=== PATIENT | male | born 1950 | race African-American/Black ===

== ENCOUNTER → 2017-12-01 | Outpatient (CLI) | payer BC, MEDICARE ==
--- NOTE | 2017-12-01 15:01 | RADIOLOGY REPORT (SQ) ---
EXAM DESCRIPTION: U/S RETROPERITON (RENAL/AORTA) COMPLETED DATE/TIME: 12/01/2017 1:16 pm REASON FOR STUDY: RENAL FAILURE (N19) N19 UNSPECIFIED KIDNEY FAILURE COMPARISON: Abdominal CT scan dated April 2014 TECHNIQUE: Dynamic and static grayscale images acquired of the kidneys and bladder and recorded on P ACS. Additional selected color Doppler and spectral images recorded. LIMITATIONS: None. FINDINGS: RIGHT KIDNEY: 12.7 cm in length. Increased cortical echogenicity. Multiple cysts are identified with the largest measuring 3.1 x 3.0 x 2.8 cm in diameters. A complex area is identified in the upper pole measuring 2.7 x 2.8 x 3.1 cm in diameters which was present on the previous CT scan . Abdominal CT scan with IV contrast or MRI of may be of value for further evaluation. No hydroneph rosis. No calcifications. LEFT KIDNEY: 9.2 cm in length. Increased cortical echogenicity. No solid or suspicious masses. Multiple cysts are identified with the largest measuring 3.5 x 3.0 x 3.0 cm in diameters P No hydrone phrosis. No calcifications. BLADDER: No masses. OTHER: No other significant finding. IMPRESSION: CHRONIC MEDICAL RENAL DISEASE. Multiple bilateral renal cysts. A complex area is ident ified in the upper pole of the right kidney as noted above which was present on the previous CT scan. Abdominal CT scan with IV contrast or MRI may be of value for further evaluation. Other findings a s noted above TECHNICAL DOCUMENTATION: JOB ID: [id number] [employer]- All Rights Reserved Reading location - IP/workstation name: [email or web address]
== END ==
LOC: RAD 12:40
PROVIDERS: ATTEND Internal Medicine Nephrology
DX: N18.9 Chronic kidney disease, unspecified (principal); Q61.02 Congenital multiple renal cysts
CPT/HCPCS: 76770

== ENCOUNTER → 2018-02-20 | Outpatient (CLI) | payer MEDICARE ==
[2018-02-20 10:24] LABS: APPEARANCE,URINE SLIGHTLY-CLOUDY; BILIRUBIN,URINE NEGATIVE (NEGATIVE); COLOR,URINE YELLOW; GLUCOSE, URINE NEGATIVE (NEGATIVE); KETONES,URINE NEGATIVE (NEGATIVE); LEUKOCYTE ESTERASE,URINE LARGE (NEGATIVE); NITRITE,URINE NEGATIVE (NEGATIVE); PROTEIN,URINE 100 mg/dL (NEGATIVE); UROBILINOGEN,URINE NEGATIVE mg/dL (<2.0)
[2018-02-20 10:46] LABS: ANION GAP 11 (5-19); BLOOD UREA NITROGEN 27 mg/dL (7-20); CALCIUM 9.7 mg/dL (8.4-10.2); CARBON DIOXIDE 19 mmol/L (22-30); CHLORIDE 118 mmol/L (98-107); GLUCOSE 82 mg/dL (75-110); SODIUM 147.7 mmol/L (137-145)
[2018-02-24 09:39] LABS: CREATININE URINE 129.3 mg/dL (Not Estab.)
[2018-02-24 12:28] LABS: MICROALBUMIN URINE 549.5 ug/mL (Not Estab.)
== END ==
LOC: LAB 09:29
PROVIDERS: ATTEND Internal Medicine Nephrology
DX: N18.4 Chronic kidney disease, stage 4 (severe) (principal); M10.9 Gout, unspecified; R80.9 Proteinuria, unspecified
CPT/HCPCS: 36415; 80048; 81001; 82043; 82570; 83970; 84550

== ENCOUNTER → 2018-02-28 | Outpatient (CLI) | payer MEDICARE | LOC: OD 11:27 | PROVIDERS: ATTEND Internal Medicine Nephrology | DX: E87.5 Hyperkalemia (principal) | CPT/HCPCS: 36415; 84132 ==

== ENCOUNTER 2018-06-08 14:34 | Inpatient (IN) | payer MEDICARE ==
[2018-06-08] MEDS ORDERED: NORMAL SALINE 500 ML IV ONE (15:15)
--- NOTE | 2018-06-08 15:22 | ER Document Report ---
ED General - General Chief Complaint: Abnormal Lab Results Stated Complaint: ABNORMAL LABS Time Seen by Provider: 06/08/18 15:14 Mode of Arrival: Ambulatory Information source: Patient, Relative, [facility] Records Notes: 67-year-old male with end-stage renal disease, hypertension, hyperlipidemia, depression presents after his warehouse order picker office called and made him aware of high potassium and advised him to come to the emergency room. Patient states that he has felt generally weak over the last month. He reports a 15 pound weight loss. He also reports a decrease in appetite. He states that recently he has needed to use the allen and counter to walk throughout his home. He denies any headache, visual changes, nausea, vomiting, chest pain, shortness of breath, lower extremity edema. He does complain of some mild achy abdominal pain which is not new for him. TRAVEL OUTSIDE OF THE [place] IN LAST 30 DAYS: No - HPI Onset: Other Onset/Duration: Gradual Quality of pain: Achy Severity: Mild Associated symptoms: Weakness. denies: Chest pain, Fever, Headache, Nausea, Vomiting, Shortness of breath Exacerbated by: Denies Relieved by: Denies Similar symptoms previously: Yes Recently seen / treated by doctor: Yes - Related Data Allergies/Adverse Reactions: No Known Allergies Allergy (Verified 06/08/18 14:35) Past Medical History - General Information source: Patient, Relative, [facility] Records - Social History Smoking Status: Current Every Day Smoker Cigarette use (# per day): Yes - 20 Smoking Education Provided: Yes - Smoking cessation counseling was provided for 4 minutes at the bedside Frequency of alcohol use: None Drug Abuse: None Lives with: Spouse/Significant other Family History: Reviewed & Not Pertinent Patient has suicidal ideation: No Patient has homicidal ideation: No - Past Medical History Cardiac Medical History: Reports: Hx Hypercholesterolemia, Hx Hypertension Renal/ Medical History: Reports: Hx End Stage Renal Disease Psychiatric Medical History: Reports: Hx Depression Review of Systems - Review of Systems Notes: REVIEW OF SYSTEMS: CONSTITUTIONAL : Denies fever, chills, or sweats. Denies recent illness. Denies recent hospitalizations. EENT: Denies visual changes, eye pain. Denies sore throat, oral lesions, difficulty swallowing. CARDIOVASCULAR: Denies chest pain. Denies palpitations. Denies lower extremity edema. RESPIRATORY: Denies cough. Denies shortness of breath, wheezing. GASTROINTESTINAL: Denies abdominal pain or distention. Denies nausea, vomiting , or diarrhea. Denies blood in vomitus, stools, or per rectum. Denies black, tarry stools. Denies constipation. GENITOURINARY: Denies difficulty urinating, painful urination, frequency, blood in urine, testicular pain or penile discharge. MUSCULOSKELETAL: Denies back or neck pain or stiffness. Denies joint pain or swelling. SKIN: Denies rash, lesions or sores. HEMATOLOGIC : Denies easy bruising or bleeding. LYMPHATIC: Denies swollen glands. NEUROLOGICAL: Denies confusion or altered mental status. Denies loss of consciousness. Denies dizziness or lightheadedness. Denies headache. Denies paralysis. Denies problems difficulty with ambulation, slurred speech. Denies sensory loss, numbness, or tingling. Denies seizures. PSYCHIATRIC: Denies anxiety or stress. Denies depression, suicidal ideation, or Physical Exam - Vital signs Vitals: Temp Pulse Resp BP Pulse Ox 97.8 F 58 L 20 100/61 100 06/08/18 14:38 06/08/18 14:38 06/08/18 14:38 06/08/18 14:38 06/08/18 14:38 - Notes Notes: PHYSICAL EXAMINATION: GENERAL: Well-appearing, thin, frail and in no acute distress. HEAD: Atraumatic, normocephalic. EYES: Pupils equal round and reactive to light, extraocular movements intact, sclera anicteric, conjunctiva are normal. ENT: Nares patent, oropharynx clear without exudates. Dry mucous membranes. NECK: Normal range of motion, supple without lymphadenopathy LUNGS: Breath sounds clear to auscultation bilaterally and equal. No wheezes rales or rhonchi. HEART: Regular rate and rhythm without murmurs ABDOMEN: Soft, nontender, nondistended abdomen. No guarding, no rebound. No masses appreciated. Musculoskeletal: Normal range of motion, no pitting or edema. No cyanosis. NEUROLOGICAL: Cranial nerves grossly intact. Normal speech, normal gait. Normal sensory, motor exams PSYCH: Normal mood, normal affect. SKIN: Warm, Dry, normal turgor, no rashes or lesions noted. Course - Re-evaluation Re-evalutation: Laboratory 06/08/18 06/08/18 06/08/18 15:15 15:15 15:15 WBC 6.0 RBC 2.92 L Hgb 9.9 L Hct 30.4 L MCV 104 H MCH 34.0 H MCHC 32.7 RDW 14.8 H Plt Count 66 L Seg Neutrophils % 52.1 Lymphocytes % 30.8 Monocytes % 14.9 H Eosinophils % 1.6 Basophils % 0.6 Absolute Neutrophils 3.1 Absolute Lymphocytes 1.9 Absolute Monocytes 0.9 Absolute Eosinophils 0.1 Absolute Basophils 0.0 Retic Count (auto) Absolute Retic PT 13.5 INR 0.98 APTT 30.5 Sodium 137.4 Potassium 6.6 H* Chloride 112 H Carbon Dioxide 17 L Anion Gap 8 BUN 60 H Creatinine 7.84 H Est GFR ( Amer) 8 L Est GFR (Non-Af Amer) 7 L Glucose 95 POC Glucose Calcium 9.3 Magnesium 3.0 H Iron TIBC % Saturation Ferritin Total Bilirubin 0.5 Direct Bilirubin 0.4 Neonat Total Bilirubin Not Reportable Neonat Direct Bilirubin Not Reportable Neonat Indirect Bili Not Reportable AST 31 ALT 16 L Alkaline Phosphatase 58 Creatine Kinase 251 H CK-MB (CK-2) Troponin I Total Protein 7.0 Albumin 3.6 Vitamin B12 Folate Urine Color Urine Appearance Urine pH Ur Specific [place] Urine Protein Urine Glucose (UA) Urine Ketones Urine Blood Urine Nitrite Urine Bilirubin Urine Urobilinogen Ur Leukocyte Esterase Urine WBC (Auto) Urine RBC (Auto) Squamous Epi Cells Auto Urine Mucus (Auto) Urine Creatinine Protein/Creatinin Ratio Urine Total Protein Urine Ascorbic Acid 06/08/18 06/08/18 06/08/18 15:15 15:15 15:15 WBC RBC Hgb Hct MCV MCH MCHC RDW Plt Count Seg Neutrophils % Lymphocytes % Monocytes % Eosinophils % Basophils % Absolute Neutrophils Absolute Lymphocytes Absolute Monocytes Absolute Eosinophils Absolute Basophils Retic Count (auto) 0.64 L Absolute Retic 0.018 L PT INR APTT Sodium Cancelled Potassium Cancelled Chloride Cancelled Carbon Dioxide Cancelled Anion Gap Cancelled BUN Cancelled Creatinine Cancelled Est GFR ( Amer) Cancelled Est GFR (Non-Af Amer) Cancelled Glucose Cancelled POC Glucose Calcium Cancelled Magnesium Iron 103.0 TIBC 330 % Saturation 31 Ferritin 240.00 Total Bilirubin Direct Bilirubin Neonat Total Bilirubin Neonat Direct Bilirubin Neonat Indirect Bili AST ALT Alkaline Phosphatase Creatine Kinase CK-MB (CK-2) 1.75 Troponin I < 0.012 Total Protein Albumin Vitamin B12 632.0 Folate 13.60 Urine Color Urine Appearance Urine pH Ur Specific [place] Urine Protein Urine Glucose (UA) Urine Ketones Urine Blood Urine Nitrite Urine Bilirubin Urine Urobilinogen Ur Leukocyte Esterase Urine WBC (Auto) Urine RBC (Auto) Squamous Epi Cells Auto Urine Mucus (Auto) Urine Creatinine Protein/Creatinin Ratio Urine Total Protein Urine Ascorbic Acid 06/08/1818 18 17:18 17:18 17:20 WBC RBC Hgb Hct MCV MCH MCHC RDW Plt Count Seg Neutrophils % Lymphocytes % Monocytes % Eosinophils % Basophils % Absolute Neutrophils Absolute Lymphocytes Absolute Monocytes Absolute Eosinophils Absolute Basophils Retic Count (auto) Absolute Retic PT INR APTT Sodium Potassium Chloride Carbon Dioxide Anion Gap BUN Creatinine Est GFR ( Amer) Est GFR (Non-Af Amer) Glucose POC Glucose 92 Calcium Magnesium Iron TIBC % Saturation Ferritin Total Bilirubin Direct Bilirubin Neonat Total Bilirubin Neonat Direct Bilirubin Neonat Indirect Bili AST ALT Alkaline Phosphatase Creatine Kinase CK-MB (CK-2) Troponin I Total Protein Albumin Vitamin B12 Folate Urine Color STRAW Urine Appearance CLEAR Urine pH 6.0 Ur Specific [place] 1.009 Urine Protein 30 H Urine Glucose (UA) 50 H Urine Ketones NEGATIVE Urine Blood NEGATIVE Urine Nitrite NEGATIVE Urine Bilirubin NEGATIVE Urine Urobilinogen NEGATIVE Ur Leukocyte Esterase NEGATIVE Urine WBC (Auto) 1 Urine RBC (Auto) 0 Squamous Epi Cells Auto 1 Urine Mucus (Auto) RARE Urine Creatinine 42.6 Protein/Creatinin Ratio 0.6 H Urine Total Protein 26.2 H Urine Ascorbic Acid NEGATIVE 06/09/18 01:08 WBC RBC Hgb Hct MCV MCH MCHC RDW Plt Count Seg Neutrophils % Lymphocytes % Monocytes % Eosinophils % Basophils % Absolute Neutrophils Absolute Lymphocytes Absolute Monocytes Absolute Eosinophils Absolute Basophils Retic Count (auto) Absolute Retic PT INR APTT Sodium 138.9 Potassium 6.0 H* Chloride 116 H Carbon Dioxide 15 L Anion Gap 8 BUN 52 H Creatinine 6.52 H Est GFR ( Amer) 10 L Est GFR (Non-Af Amer) 9 L Glucose 113 H POC Glucose Calcium 9.1 Magnesium Iron TIBC % Saturation Ferritin Total Bilirubin Direct Bilirubin Neonat Total Bilirubin Neonat Direct Bilirubin Neonat Indirect Bili AST ALT Alkaline Phosphatase Creatine Kinase CK-MB (CK-2) Troponin I Total Protein Albumin Vitamin B12 Folate Urine Color Urine Appearance Urine pH Ur Specific [place] Urine Protein Urine Glucose (UA) Urine Ketones Urine Blood Urine Nitrite Urine Bilirubin Urine Urobilinogen Ur Leukocyte Esterase Urine WBC (Auto) Urine RBC (Auto) Squamous Epi Cells Auto Urine Mucus (Auto) Urine Creatinine Protein/Creatinin Ratio Urine Total Protein Urine Ascorbic Acid Chest X-Ray 06/08/18 15:15 IMPRESSION: NO ACUTE RADIOGRAPHIC FINDING IN THE CHEST. 67-year-old male with hypertension, hyperlipidemia, end-stage renal disease not currently undergoing dialysis presents after receiving a call from his warehouse order picker who stated that he had an elevated potassium level and should come immediately to the emergency department.. Potassium found to be 6.6. Patient has a creatinine of 7.84. This is a significant change from his previous labs in February which show a creatinine of 3. Upon arrival vitals are reviewed and patient is bradycardic at a heart rate of 55. Patient does not appear toxic, he does appear mildly dehydrated. He denies any associated dizziness, shortness of breath, chest pain. EKG was obtained and did show sinus bradycardia without peak T waves or prolonged QTC. Patient was administered calcium gluconate, insulin, dextrose, albuterol, IV fluids, Lasix during his ED course. CBC is without leukocytosis but does show anemia. Cardiac enzymes within normal limits. 06/08/18 15:59 I did speak to Dr. Pineda the patient's warehouse order picker and made her aware that the patient's creatinine is now 8 up from 3 three months ago. She is agreeable to consult on the patient. Patient has been accepted by the hospitalist Dr. Souza. Patient and were agreeable to admission at this time. 06/09/18 02:12 06/09/18 02:13 06/09/18 02:15 - Vital Signs Vital signs: Temp Pulse Resp BP Pulse Ox 97.9 F 55 L 16 116/58 L 100 06/08/18 23:20 06/08/18 23:20 06/08/18 23:20 06/08/18 23:20 06/08/18 23:20 - Laboratory Result Diagrams: 06/08/18 15:15 06/09/18 01:08 Laboratory results interpreted by me: 06/08/18 06/08/18 06/08/18 15:15 15:15 15:15 RBC 2.92 L Hgb 9.9 L Hct 30.4 L MCV 104 H MCH 34.0 H RDW 14.8 H Plt Count 66 L Monocytes % 14.9 H Retic Count (auto) 0.64 L Absolute Retic 0.018 L Potassium 6.6 H* Chloride 112 H Carbon Dioxide 17 L BUN 60 H Creatinine 7.84 H Est GFR ( Amer) 8 L Est GFR (Non-Af Amer) 7 L Magnesium 3.0 H ALT 16 L Creatine Kinase 251 H - Diagnostic Test Radiology reviewed: Image reviewed, Reports reviewed - EKG Interpretation by Me EKG shows normal: Sinus rhythm Rate: Bradycardia Rhythm: NSR When compared to previous EKG there are: Previous EKG unavailable Discharge - Discharge Clinical Impression: Hyperkalemia, End stage renal disease, Dehydration, Tremor, Bradycardia Condition: Good Disposition: ADMITTED INPATIENT Admitting Provider: Hospitalist Unit Admitted: Telemetry
[2018-06-08] MEDS ORDERED: CALCIUM GLUCONATE 1000 MG/10 ML INJ IV ONE (15:39)
[2018-06-08] MEDS ORDERED: ALBUTEROL SULFATE 0.083% NEB 2.5 MG/3 ML AMPUL NEB ONE (15:39)
[2018-06-08 15:43] LABS: INTERNATIONAL RATION (INR) 0.98
[2018-06-08 15:44] LABS: PARTIAL THROMBOPLASTIN TIME 30.5 SEC (23.5-35.8)
[2018-06-08 15:47] LABS: PROTHROMBIN TIME 13.5 SEC (11.4-15.4)
[2018-06-08 15:48] LABS: ABSOLUTE EOSINOPHILS # (AUTO) 0.1 10^3/uL (0.0-0.6); ABSOLUTE LYMPHOCYTES (AUTO) 1.9 10^3/uL (0.5-4.7); ABSOLUTE MONOCYTES (AUTO) 0.9 10^3/uL (0.1-1.4); ABSOLUTE NEUT (AUTO) 3.1 10^3/uL (1.7-8.2); BASOPHILS % (AUTO) 0.6 % (0-2); EOSINOPHILS % (AUTO) 1.6 % (0-6); HEMATOCRIT 30.4 % (37.9-51.0); HEMOGLOBIN 9.9 g/dL (13.5-17.0); LYMPHOCYTES % (AUTO) 30.8 % (13-45); MEAN CORPUSCULAR HGB CONC 32.7 g/dL (32.0-36.0); MEAN CORPUSCULAR VOLUME 104 fl (80-97); MONOCYTES % (AUTO) 14.9 % (3-13); RED BLOOD COUNT 2.92 10^6/uL (4.35-5.55); RED CELL DISTRIBUTION WIDTH 14.8 % (11.5-14.0); SEGMENTED NEUTROPHILS % (AUTO) 52.1 % (42-78); TOTAL CELLS COUNTED % (AUTO) 100 %
[2018-06-08 15:50] LABS: ALANINE AMINOTRANSFERASE 16 U/L (21-72); ALBUMIN 3.6 g/dL (3.5-5.0); ALKALINE PHOSPHATASE 58 U/L (38-126); ANION GAP 8 (5-19); ASPARTATE AMINO TRANSFERASE 31 U/L (17-59); BILIRUBIN,DIRECT 0.4 mg/dL (0.0-0.4); BILIRUBIN,TOTAL 0.5 mg/dL (0.2-1.3); BLOOD UREA NITROGEN 60 mg/dL (7-20); CALCIUM 9.3 mg/dL (8.4-10.2); CARBON DIOXIDE 17 mmol/L (22-30); CHLORIDE 112 mmol/L (98-107); CREATINE KINASE 251 U/L (55-170); GLUCOSE 95 mg/dL (75-110); PLATELET COUNT 66 10^3/uL (150-450); SODIUM 137.4 mmol/L (137-145)
[2018-06-08] MEDS ORDERED: INSULIN REG, HUMAN 100 UNIT/ML 3 ML VIAL (PYX) IV ONE (15:58)
[2018-06-08] MEDS ORDERED: DEXTROSE 50%-WATER 25 GM/50 ML DISP.SYRIN IV ONE (15:58)
[2018-06-08] MEDS ORDERED: FUROSEMIDE INJ/PF 20 MG/2 ML SDV IV ONE (15:59)
[2018-06-08] MEDS ORDERED: NORMAL SALINE 1000 ML 1,000 ML IV ONE (15:59)
[2018-06-08 16:02] LABS: CREATINE KINASE MB 1.75 ng/mL (<4.55); POTASSIUM 6.6 mmol/L (3.6-5.0)
--- NOTE | 2018-06-08 16:06 | RADIOLOGY REPORT (SQ) ---
EXAM DESCRIPTION: CHEST 2 VIEWS COMPLETED DATE/TIME: 06/08/2018 3:50 pm REASON FOR STUDY: weakness weight loss COMPARISON: None. EXAM PARAMETERS: NUMBER OF VIEWS: two views TECHNIQUE: Digital Frontal and Lateral radiographic views of the chest acquired. RADIATION DOSE: NA LIMITATIONS: none FINDINGS: LUNGS AND PLEURA: No opacities, masses or pneumothorax. No pleural effusion. MEDIASTINUM AND HILAR STRUCTURES: No masses or contour abnormalities. HEART AND VASCULAR STRUCTURES: Heart normal size. No evidence for failure. BONES: No acute findings. HARDWARE: None in the chest. OTHER: No other significant finding. IMPRESSION: NO ACUTE RADIOGRAPHIC FINDING IN THE CHEST. TECHNICAL DOCUMENTATION: JOB ID: [id number] [employer]- All Rights Reserved Reading location - IP/workstation name: [email or web address]
[2018-06-08 16:07] LABS: TROPONIN I < 0.012 ng/mL
--- NOTE | 2018-06-08 17:32 | PDOC H&P ---
History of Present Illness Admission Date/PCP: 06/08/18 16:39 MARIELLA MCCLAIN MD Patient complains of: Anorexia, weakness History of Present Illness: ARPITA MCARTHUR is a 67 year old male CKD diagnosed 5 years ago, hypertension, hyperlipidemia, seizure disorder, depression presents after his research assistant member office called and made him aware of high potassium and advised him to come to the emergency room. He states that he has felt generally weak over the last month and has lost about 15 pounds due to low appetite "food does not taste good" he has also cut down his fluid intake for the same reason. He mentions that he has lost his balance and on Tuesday he tripped and fell without losing consciousness or sustaining any trauma. He is also complaining of worsening intention tremor. He denies any headache, visual changes, nausea, vomiting, chest pain, shortness of breath, lower extremity edema. Hospitalist consulted for management for admission. As per ED doctor Dr. Mcclain his research assistant member is aware of his worsening renal function and hyperkalemia and has agreed to consult on the patient. Past Medical History Cardiac Medical History: Reports: Hyperlipidema, Hypertension Renal/ Medical History: Reports: End Stage Renal Disease Psychiatric Medical History: Reports: Depression Social History Lives with: Spouse/Significant other Smoking Status: Current Every Day Smoker Family History Family History: Reviewed & Not Pertinent Parental Family History Reviewed: Yes Children Family History Reviewed: Yes Sibling(s) Family History Reviewed.: Yes Medication/Allergy Home Medications: Amlodipine Besylate [Norvasc 5 mg Tablet] 5 mg PO DAILY 06/08/18 Benztropine Mesylate [Cogentin 1 mg Tablet] 1 tab PO DAILY 06/08/18 Cyanocobalamin (Vitamin B-12) [Vitamin B-12 1000 mcg Tablet] 1 tab PO DAILY Divalproex Sodium [Depakote ER 500 mg Tab.sr] 1,000 mg PO QHS 06/08/18 Folic Acid 1 mg PO DAILY 06/08/18 Lisinopril [Prinivil 5 mg Tablet] 5 mg PO DAILY 06/08/18 Lovastatin [Altoprev] 20 mg PO DAILY 06/08/18 Sulfamethoxazole/Trimethoprim [Bactrim Ds Tablet] 1 tab PO DAILY 06/08/18 Thiothixene 10 mg PO DAILY 06/08/18 Allergies/Adverse Reactions: No Known Allergies Allergy (Verified 06/08/18 14:35) Review of Systems Review of Systems: As per HPI Physical Exam Vital Signs: Temp Pulse Resp BP Pulse Ox 97.8 F 58 L 20 114/72 99 06/08/18 14:38 06/08/18 14:38 06/08/18 15:09 06/08/18 15:09 06/08/18 15:09 General appearance: PRESENT: no acute distress, cooperative, thin Head exam: PRESENT: atraumatic, normocephalic Eye exam: PRESENT: conjunctiva pink, EOMI, PERRLA. ABSENT: scleral icterus Neck exam: ABSENT: carotid bruit, JVD, lymphadenopathy, thyromegaly Respiratory exam: PRESENT: clear to auscultation pili. ABSENT: rales, rhonchi, wheezes Cardiovascular exam: PRESENT: RRR. ABSENT: diastolic murmur, rubs, systolic murmur Pulses: PRESENT: normal dorsalis pedis pul GI/Abdominal exam: PRESENT: normal bowel sounds, soft. ABSENT: distended, guarding, mass, organolmegaly, rebound, tenderness Neurological exam: PRESENT: alert, awake, oriented to person, oriented to place , oriented to time, oriented to situation, CN II-XII grossly intact, other - Moderate intention tremor.. ABSENT: motor sensory deficit Psychiatric exam: PRESENT: appropriate affect, normal mood. ABSENT: homicidal ideation, suicidal ideation Skin exam: PRESENT: dry, intact, warm. ABSENT: cyanosis, rash Results Impressions: Chest X-Ray 06/08/18 15:15 IMPRESSION: NO ACUTE RADIOGRAPHIC FINDING IN THE CHEST. Assessment & Plan - Diagnosis (1) Acute kidney injury superimposed on chronic kidney disease Is this a current diagnosis for this admission?: Yes Plan: She was having uremic symptoms due to worsening kidney function or could actually be going into end-stage renal disease. It is also possible his kidney function has been worsening because of poor oral intakes caused by his uremic symptoms. We will continue IV fluids guided by his volume status. BMP every 6 hours, treat underlying hyperkalemia. Patient is being followed by nephrology. (2) Hyperkalemia Is this a current diagnosis for this admission?: Yes Plan: Due to newly onset end-stage renal disease. Start on hyperkalemia protocol. Skiver Operator has been consulted possible hemodialysis. Admit to shelter monitor vitals. BMP every 4 hours. (3) Anemia in CKD (chronic kidney disease) Is this a current diagnosis for this admission?: Yes Plan: Most likely due to CKD. Order an iron panel and stool guaiac to rule out any other sources of anemia. BMP tomorrow. Supportive transfusions. (4) Hx of seizure disorder Is this a current diagnosis for this admission?: No Plan: Stated that he has a history of seizure disorders and he is on Depakote. Continue seizure precautions. During his home medication Depakote was not seen. (5) HTN (hypertension) Is this a current diagnosis for this admission?: No Plan: Currently normotensive. Monitor vitals. Will restart home medications once clinically appropriate. (6) Tremor Is this a current diagnosis for this admission?: No Plan: Worsening generalized intention tremor. Patient denies EtOH or any recreational drug abuse. This could likely be due to side effects of thiothixene for his schizophrenia. Restart benztropine. (7) Bradycardia Is this a current diagnosis for this admission?: Yes Plan: Sinus bradycardia. Asymptomatic. Admit to shelter monitor vitals. Cardiac enzymes negative (8) Dehydration Is this a current diagnosis for this admission?: Yes Plan: Likely due to decreased fluid intake. Patient stating he is not drinking water "it does not taste good" . Resuscitate guided by volume status. (9) Schizophrenia Is this a current diagnosis for this admission?: No Plan: Restart home meds. Outpatient psychiatry follow-up.
[2018-06-08] MEDS ORDERED: LORAZEPAM INJ 2 MG/1 ML VIAL IV PRN (17:40)
[2018-06-08 17:55] LABS: ABSOLUTE RETICS # 0.018 10^6/uL (0.028-0.122); RETICULOCYTE COUNT (AUTO) 0.64 % (0.66-2.85)
[2018-06-08 18:00] LABS: APPEARANCE,URINE CLEAR; BILIRUBIN,URINE NEGATIVE (NEGATIVE); COLOR,URINE STRAW; GLUCOSE, URINE 50 mg/dL (NEGATIVE); KETONES,URINE NEGATIVE (NEGATIVE); LEUKOCYTE ESTERASE,URINE NEGATIVE (NEGATIVE); NITRITE,URINE NEGATIVE (NEGATIVE); PROTEIN,URINE 30 mg/dL (NEGATIVE); URINE SPECIFIC GRAVITY 1.009; UROBILINOGEN,URINE NEGATIVE mg/dL (<2.0)
[2018-06-08] MEDS: SODIUM POLYSTYRENE SULFONATE 15 GM/60 ML PO SCH ×2 (18:17→23:46)
--- NOTE | 2018-06-08 18:26 | EKG REPORT ---
SEVERITY:- OTHERWISE NORMAL ECG - SINUS BRADYCARDIA : Confirmed by: Dimitri Green MD 08-Jun-2018 18:26:14
--- NOTE | 2018-06-08 20:12 | PDOC CONSULTATION ---
Consultation Consult Date: 06/08/18 Attending physician:: EVELYN KUMAR Consult reason:: I was asked to see the patient because of worsening kidney function and hyperkalemia. History of Present Illness Admission Date/PCP: 06/08/18 16:39 MARIELLA MCCLAIN MD History of Present Illness: ARPITA MCARTHUR is a 67 year old male known to me with history of chronic kidney disease stage IV secondary to hypertensive nephrosclerosis with nephrotic range proteinuria, hypertension, anemia of chronic kidney disease, bipolar disorder, who presented to the emergency room after we advised the patient to go to the ER because of hyperkalemia. Patient went to the lab today to have his usual standard blood work done before his appointment. The lab called my office because his potassium was elevated at 6.2. At that time. He called the patient and he indicated that he was not feeling so well and that he felt dizzy and has more tremors. So I advised the patient to go to the emergency room. The rest of his labs does not come out yet during that time. In the emergency room his labs were repeated and his potassium was confirmed to be elevated at 6.6. His BUN and creatinine were also elevated at 60 and 7.84 with estimated GFR of 8. The creatinine earlier in the morning was 8. Patient' s baseline kidney function include a creatinine around 3+ with estimated GFR around 20+. He has been stable for the last few months until now. In the emergency room he was given IV fluid bolus of normal saline at with a total of 1500 mL. He was also given medications for elevated potassium including an amp of calcium gluconate, 10 units of regular insulin with an amp of D50/50, a dose of Lasix 20 mg IV and a dose of Kayexalate 15 g was also given. He was also noted to be initially bradycardic but has improved now. But I talked to the patient the patient and who was at bedside confirmed that he has been feeling weak for the last 3-4 weeks. He said is been constipated. He admits that he has not been eating good because the food does not taste good at all. also confirms that he has not been drinking fluids may be less than 16 ounces a day. His urine output has decreased as well. He lost about 15 pounds. He otherwise denies any nausea, vomiting, chest pains, shortness of breath, no leg swelling. notices that his baseline essential tremors has been worsening as well. He was also noted to be a little bit unsteady. There was a question if the patient is still taking naproxen. Past Medical History Cardiac Medical History: Reports: Hyperlipidemia, Hypertension-primary Neurological Medical History: Reports: Other - Vertigo Renal/ Medical History: Reports: Chronic Kidney Disease Stage IV, Proteinuria , Secondary Hyperparathyroidism, Other - Kidney cysts Musculoskeltal Medical History: Reports: Arthritis, Gout Psychiatric Medical History: Reports: Schizoaffective Disorder, Other - Bipolar disorder Hematology Medical History: Reports Anemia of Chronic Kidney Disease Social History Information Source: Patient, Parent Lives with: Spouse/Significant other Smoking Status: Current Every Day Smoker Cigarettes Packs Per Day: 20 Number of Years Smokin Last Time Smoked: t Frequency of Alcohol Use: None Hx Recreational Drug Use: No Drugs: None Hx Prescription Drug Abuse: No - Advance Directive Resuscitation Status: Full Code Family History Family History: CVA - O[place]se father on both paternal and maternal side, DM - Father, brother and sister, Hypertension - Parents, sister and brother, Malignancy - Lung cancer in his mother, Other - Dementia on his mother Parental Family History Reviewed: Yes Children Family History Reviewed: Yes Sibling(s) Family History Reviewed.: Yes Medication/Allergy Home Medications: Amlodipine Besylate [Norvasc 5 mg Tablet] 5 mg PO DAILY 06/08/18 Benztropine Mesylate [Cogentin 1 mg Tablet] 1 tab PO DAILY 06/08/18 Cyanocobalamin (Vitamin B-12) [Vitamin B-12 1000 mcg Tablet] 1 tab PO DAILY Folic Acid 1 mg PO DAILY 06/08/18 Lisinopril [Prinivil 5 mg Tablet] 5 mg PO DAILY 06/08/18 Lovastatin [Altoprev] 20 mg PO DAILY 06/08/18 Sulfamethoxazole/Trimethoprim [Bactrim Ds Tablet] 1 tab PO DAILY 06/08/18 Thiothixene 10 mg PO DAILY 06/08/18 Allergies/Adverse Reactions: No Known Allergies Allergy (Verified 06/08/18 14:35) Review of Systems All systems: reviewed and no additional remarkable complaints except as stated Review of Systems: Constitutional: ABSENT: chills, fever(s), headache(s), weight gain; admits 15 pounds weight loss and weakness Eyes: ABSENT: visual disturbances Ears: ABSENT: hearing changes Cardiovascular: ABSENT: chest pain, dyspnea on exertion, edema, orthropnea, palpitations Respiratory: ABSENT: cough, dyspnea, hemoptysis Gastrointestinal: ABSENT: abdominal pain, diarrhea, hematemesis, hematochezia, nausea, vomiting; admits constipation Genitourinary: ABSENT: dysuria, hematuria Musculoskeletal: ABSENT: joint swelling Integumentary: ABSENT: rash, wounds Neurological: ABSENT: abnormal gait, abnormal speech, confusion, focal weakness , numbness, syncope; admits dizziness and unsteadiness, worsening tremors Psychiatric: ABSENT: anxiety, depression Endocrine: ABSENT: cold intolerance, heat intolerance, polydipsia, polyuria Hematologic/Lymphatic: ABSENT: easy bleeding, easy bruising, lymphadenopathy Physical Exam Vital Signs: Temp Pulse Resp BP Pulse Ox 97.8 F 81 21 H 129/70 H 99 06/08/18 14:38 06/08/18 19:16 06/08/18 18:00 06/08/18 17:00 06/08/18 18:00 Intake & Output 06/07/18 06/08/18 06/09/18 06:59 06:59 06:59 Intake Total 1000 Balance 1000 Exam: General appearance: No acute distress, cooperative, well-developed, well- nourished Head exam: PRESENT: atraumatic, normocephalic Eye exam: PRESENT: Conjunctiva slightly pale, EOMI, PERRLA. ABSENT: conjunctival injection, scleral icterus Mouth exam: PRESENT: moist, neck supple, tongue midline Neck exam: PRESENT: full ROM. ABSENT: carotid bruit, JVD, lymphadenopathy, thyromegaly Respiratory exam: PRESENT: clear to auscultation bilaterally. ABSENT: rales, rhonchi, stridor, wheezes Cardiovascular exam: PRESENT: RRR, +S1, +S2. ABSENT: systolic murmur Pulses: PRESENT: normal radial pulses, normal dorsalis pedis pulses GI/Abdominal exam: PRESENT: normal bowel sounds, soft. ABSENT: guarding, mass, tenderness Rectal exam: Deferred Extremities exam: PRESENT: full ROM. ABSENT: calf tenderness, pedal edema Musculoskeletal: PRESENT: full ROM. ABSENT: deformity Neurological exam: PRESENT: alert, Awake, Oriented to person, Oriented to place , Oriented to time, reflexes normal, CN II-XII grossly intact. ABSENT: motor sensory deficit Psychiatric exam: PRESENT: appropriate affect, normal mood. ABSENT: homicidal ideation, suicidal ideation Skin exam: PRESENT: intact, dry, warm. ABSENT: rash Results Laboratory Results: 06/08/18 17:18 Urine Color STRAW Urine Appearance CLEAR Urine pH 6.0 Ur Specific [place] 1.009 Urine Protein 30 H Urine Glucose (UA) 50 H Urine Ketones NEGATIVE Urine Blood NEGATIVE Urine Nitrite NEGATIVE Ur Leukocyte Esterase NEGATIVE Urine WBC (Auto) 1 Urine RBC (Auto) 0 06/08/18 06/08/18 06/08/18 10:37 10:37 10:37 Phosphorus 5.7 H Vitamin D 25-Hydroxy 46.9 PTH Intact 62.5 Laboratory 06/08/18 06/08/18 06/08/18 15:15 15:15 15:15 WBC 6.0 RBC 2.92 L Hgb 9.9 L Hct 30.4 L MCV 104 H MCH 34.0 H MCHC 32.7 RDW 14.8 H Plt Count 66 L Seg Neutrophils % 52.1 Lymphocytes % 30.8 Monocytes % 14.9 H Eosinophils % 1.6 Basophils % 0.6 Absolute Neutrophils 3.1 Absolute Lymphocytes 1.9 Absolute Monocytes 0.9 Absolute Eosinophils 0.1 Absolute Basophils 0.0 Retic Count (auto) Absolute Retic PT 13.5 INR 0.98 APTT 30.5 Sodium 137.4 Potassium 6.6 H* Chloride 112 H Carbon Dioxide 17 L Anion Gap 8 BUN 60 H Creatinine 7.84 H Est GFR ( Amer) 8 L Est GFR (Non-Af Amer) 7 L Glucose 95 POC Glucose Calcium 9.3 Magnesium 3.0 H Iron TIBC % Saturation Ferritin Total Bilirubin 0.5 Direct Bilirubin 0.4 Neonat Total Bilirubin Not Reportable Neonat Direct Bilirubin Not Reportable Neonat Indirect Bili Not Reportable AST 31 ALT 16 L Alkaline Phosphatase 58 Creatine Kinase 251 H CK-MB (CK-2) Troponin I Total Protein 7.0 Albumin 3.6 Vitamin B12 Folate Urine Color Urine Appearance Urine pH Ur Specific [place] Urine Protein Urine Glucose (UA) Urine Ketones Urine Blood Urine Nitrite Urine Bilirubin Urine Urobilinogen Ur Leukocyte Esterase Urine WBC (Auto) Urine RBC (Auto) Squamous Epi Cells Auto Urine Mucus (Auto) Urine Ascorbic Acid 06/08/18 06/08/18 06/08/18 15:15 15:15 15:15 WBC RBC Hgb Hct MCV MCH MCHC RDW Plt Count Seg Neutrophils % Lymphocytes % Monocytes % Eosinophils % Basophils % Absolute Neutrophils Absolute Lymphocytes Absolute Monocytes Absolute Eosinophils Absolute Basophils Retic Count (auto) 0.64 L Absolute Retic 0.018 L PT INR APTT Sodium Cancelled Potassium Cancelled Chloride Cancelled Carbon Dioxide Cancelled Anion Gap Cancelled BUN Cancelled Creatinine Cancelled Est GFR ( Amer) Cancelled Est GFR (Non-Af Amer) Cancelled Glucose Cancelled POC Glucose Calcium Cancelled Magnesium Iron 103.0 TIBC 330 % Saturation 31 Ferritin 240.00 Total Bilirubin Direct Bilirubin Neonat Total Bilirubin Neonat Direct Bilirubin Neonat Indirect Bili AST ALT Alkaline Phosphatase Creatine Kinase CK-MB (CK-2) 1.75 Troponin I < 0.012 Total Protein Albumin Vitamin B12 632.0 Folate 13.60 Urine Color Urine Appearance Urine pH Ur Specific [place] Urine Protein Urine Glucose (UA) Urine Ketones Urine Blood Urine Nitrite Urine Bilirubin Urine Urobilinogen Ur Leukocyte Esterase Urine WBC (Auto) Urine RBC (Auto) Squamous Epi Cells Auto Urine Mucus (Auto) Urine Ascorbic Acid 06/08/18 06/08/18 17:18 17:20 WBC RBC Hgb Hct MCV MCH MCHC RDW Plt Count Seg Neutrophils % Lymphocytes % Monocytes % Eosinophils % Basophils % Absolute Neutrophils Absolute Lymphocytes Absolute Monocytes Absolute Eosinophils Absolute Basophils Retic Count (auto) Absolute Retic PT INR APTT Sodium Potassium Chloride Carbon Dioxide Anion Gap BUN Creatinine Est GFR ( Amer) Est GFR (Non-Af Amer) Glucose POC Glucose 92 Calcium Magnesium Iron TIBC % Saturation Ferritin Total Bilirubin Direct Bilirubin Neonat Total Bilirubin Neonat Direct Bilirubin Neonat Indirect Bili AST ALT Alkaline Phosphatase Creatine Kinase CK-MB (CK-2) Troponin I Total Protein Albumin Vitamin B12 Folate Urine Color STRAW Urine Appearance CLEAR Urine pH 6.0 Ur Specific [place] 1.009 Urine Protein 30 H Urine Glucose (UA) 50 H Urine Ketones NEGATIVE Urine Blood NEGATIVE Urine Nitrite NEGATIVE Urine Bilirubin NEGATIVE Urine Urobilinogen NEGATIVE Ur Leukocyte Esterase NEGATIVE Urine WBC (Auto) 1 Urine RBC (Auto) 0 Squamous Epi Cells Auto 1 Urine Mucus (Auto) RARE Urine Ascorbic Acid NEGATIVE Impressions: Chest X-Ray 06/08/18 15:15 IMPRESSION: NO ACUTE RADIOGRAPHIC FINDING IN THE CHEST. Assessment & Plan - Diagnosis (1) Acute kidney injury superimposed on chronic kidney disease Is this a current diagnosis for this admission?: Yes Plan: The patient's symptoms are consistent with uremic symptoms due to worsening kidney function. It is possible that the patient's kidney function is worsening and is actually in end-stage renal disease now causing all the symptoms. However it is also possible that due to the patient's poor oral intake of solids and liquids for the past 3-4 weeks that the patient just had severe prerenal azotemia due to volume depletion causing worsening kidney function. The patient's kidney function has so far been stable for the last few months with baseline CKD stage IV. I am going to give the patient a trial of IV fluid hydration and see if the patient's kidney function will improve. If it does not improve for the next 12 hours or so then the patient will need to be initiated on hemodialysis. I explained the process, risks and benefits of hemodialysis with the patient. The patient agreed to proceed if necessary. We will monitor the patient's kidney function in the morning we will decide if the patient would need renal replacement therapy or not. Agree with holding the patient's lisinopril and any NSAIDs. Will check urine for protein creatinine ratio. Check kidney ultrasound as well. (2) Hyperkalemia Is this a current diagnosis for this admission?: Yes Plan: Patient was given medications to decrease potassium level earlier in the emergency room. The IV fluids can also lower down the potassium level. We will repeat potassium and proceed accordingly. (3) Anemia in CKD (chronic kidney disease) Is this a current diagnosis for this admission?: Yes Plan: Check iron panel. We will give iron and/or Procrit as needed. (4) Metabolic acidosis Is this a current diagnosis for this admission?: Yes Plan: We will monitor for now. (5) Hyperphosphatemia Is this a current diagnosis for this admission?: Yes Plan: Follow low phosphorus diet. (6) Hypermagnesemia Is this a current diagnosis for this admission?: Yes (7) HTN (hypertension) Is this a current diagnosis for this admission?: Yes - Notes Notes: Impression and plan discussed with the patient and his . They understood. Plan also discussed with the patient's nurse blaine. Thank you very much for this consultation. I will follow the patient with you. - Time Time Spent: Greater than 70 Minutes
[2018-06-08] MEDS: NORMAL SALINE 1000 ML 1,000 ML IV PRN (20:20)
[2018-06-08] MEDS: HEPARIN SOD (PORCINE) 5,000 UNIT/ML 1 ML SYRINGE SUBCUT SCH (21:47)
[2018-06-08] MEDS: ATORVASTATIN CALCIUM 20 MG TABLET PO SCH (21:52)
[2018-06-08] MEDS ORDERED: FUROSEMIDE INJ/PF 20 MG/2 ML SDV IV SCH (22:00)
[2018-06-08 23:05] LABS: UR PRO/CREAT RATIO RESULT 0.6 mg/mg (0.0-0.2); URINE CREATININE 42.6 mg/dL (22-328); URINE PROTEIN 26.2 mg/dL (<12)
[2018-06-08] MEDS ORDERED: DIVALPROEX SODIUM 500 MG TAB.SR.24H PO ONE (23:50)
[2018-06-09 01:47] LABS: ANION GAP 8 (5-19); BLOOD UREA NITROGEN 52 mg/dL (7-20); CALCIUM 9.1 mg/dL (8.4-10.2); CARBON DIOXIDE 15 mmol/L (22-30); CHLORIDE 116 mmol/L (98-107); GLUCOSE 113 mg/dL (75-110); SODIUM 138.9 mmol/L (137-145)
[2018-06-09] MEDS: NORMAL SALINE 1000 ML 1,000 ML IV PRN (02:18)
[2018-06-09] MEDS: HEPARIN SOD (PORCINE) 5,000 UNIT/ML 1 ML SYRINGE SUBCUT SCH ×3 (05:00→21:15)
[2018-06-09] MEDS: LANSOPRAZOLE 15 MG TAB.RAP.DR PO SCH (05:57)
[2018-06-09] MEDS: SODIUM POLYSTYRENE SULFONATE 15 GM/60 ML PO SCH ×2 (05:57→14:16)
[2018-06-09] MEDS ORDERED: DEXTROSE 50%-WATER 25 GM/50 ML DISP.SYRIN IV ONE ×2 (06:49→06:54)
[2018-06-09] MEDS ORDERED: SODIUM POLYSTYRENE SULFONATE 15 GM/60 ML PO ONE (06:49)
[2018-06-09] MEDS ORDERED: INSULIN REG, HUMAN 100 UNIT/ML 3 ML VIAL (PYX) IV ONE ×2 (06:52→09:00)
[2018-06-09 07:44] LABS: ANION GAP 10 (5-19); BLOOD UREA NITROGEN 46 mg/dL (7-20); CALCIUM 9.1 mg/dL (8.4-10.2); CARBON DIOXIDE 15 mmol/L (22-30); CHLORIDE 118 mmol/L (98-107); GLUCOSE 89 mg/dL (75-110); POTASSIUM 5.5 mmol/L (3.6-5.0); SODIUM 142.6 mmol/L (137-145)
[2018-06-09 07:46] LABS: HEMATOCRIT 27.9 % (37.9-51.0); HEMOGLOBIN 9.3 g/dL (13.5-17.0); MEAN CORPUSCULAR HEMOGLOBIN 34.8 pg (27.0-33.4); MEAN CORPUSCULAR HGB CONC 33.4 g/dL (32.0-36.0); MEAN CORPUSCULAR VOLUME 104 fl (80-97); RED BLOOD COUNT 2.68 10^6/uL (4.35-5.55); RED CELL DISTRIBUTION WIDTH 14.7 % (11.5-14.0); WHITE BLOOD COUNT 6.1 10^3/uL (4.0-10.5)
[2018-06-09 08:14] LABS: PLATELET COUNT 57 10^3/uL (150-450)
[2018-06-09] MEDS ORDERED: CALCIUM GLUCONATE 1000 MG/10 ML INJ IV ONE (09:00)
--- NOTE | 2018-06-09 09:59 | PDOC PROGRESS REPORT ---
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 He states that he has felt generally weak over the last month and has lost about 15 pounds due to low appetite "food does not taste good" he has also cut down his fluid intake for the same reason. He mentions that he has lost his balance and on Tuesday he tripped and fell without losing consciousness or sustaining any trauma. He is also complaining of worsening intention tremor. He denies any headache, visual changes, nausea, vomiting, chest pain, shortness of breath, lower extremity edema. 06/09/2018. No acute events overnight. Patient is resting comfortably in his bed while his is sitting next to him in the chair. She is very pleasant and cooperative with physical examination. And has been able to tolerate p.o. intake and also he has been receiving IV fluids. Patient said that he had been urinating since last night. He may need hemodialysis on this admission. His tremors has decreased significantly since admission. He denies any fever, chills, nausea, vomiting, diarrhea, constipation or any urinary symptoms. Reason For Visit: HYPERKALEMIA Physical Exam Vital Signs: Temp Pulse Resp BP Pulse Ox 98.4 F 59 L 17 131/65 H 96 06/09/18 07:12 06/09/18 07:12 06/09/18 07:12 06/09/18 07:12 06/09/18 09:09 Intake & Output 06/08/18 06/09/18 06/10/18 06:59 06:59 06:59 Intake Total 2095 Output Total 400 Balance 1695 Weight 68.8 kg General appearance: PRESENT: no acute distress, well-developed, well-nourished Head exam: PRESENT: atraumatic, normocephalic Eye exam: PRESENT: conjunctiva pink, EOMI, PERRLA. ABSENT: scleral icterus Ear exam: PRESENT: normal external ear exam Mouth exam: PRESENT: moist, tongue midline Neck exam: ABSENT: carotid bruit, JVD, lymphadenopathy, thyromegaly Respiratory exam: PRESENT: clear to auscultation pili. ABSENT: rales, rhonchi, wheezes Cardiovascular exam: PRESENT: RRR. ABSENT: diastolic murmur, rubs, systolic murmur Pulses: PRESENT: normal dorsalis pedis pul Vascular exam: PRESENT: normal capillary refill GI/Abdominal exam: PRESENT: normal bowel sounds, soft. ABSENT: distended, guarding, mass, organolmegaly, rebound, tenderness Rectal exam: PRESENT: deferred Extremities exam: PRESENT: full ROM. ABSENT: calf tenderness, clubbing, pedal edema Neurological exam: PRESENT: alert, awake, oriented to person, oriented to place , oriented to time, oriented to situation, CN II-XII grossly intact, other - Resting and intention tremor possibly caused by his antipsychotics.. ABSENT: motor sensory deficit Psychiatric exam: PRESENT: appropriate affect, normal mood. ABSENT: homicidal ideation, suicidal ideation Skin exam: PRESENT: dry, intact, warm. ABSENT: cyanosis, rash Results Laboratory Results: 06/09/18 07:05 06/09/18 07:05 06/08/18 06/09/18 06/09/18 17:18 01:08 07:05 WBC 6.1 RBC 2.68 L Hgb 9.3 L Hct 27.9 L MCV 104 H MCH 34.8 H MCHC 33.4 RDW 14.7 H Plt Count 57 L Sodium 138.9 Potassium 6.0 H* Chloride 116 H Carbon Dioxide 15 L Anion Gap 8 BUN 52 H Creatinine 6.52 H Est GFR ( Amer) 10 L Est GFR (Non-Af Amer) 9 L Glucose 113 H Calcium 9.1 Urine Color STRAW Urine Appearance CLEAR Urine pH 6.0 Ur Specific [place] 1.009 Urine Protein 30 H Urine Glucose (UA) 50 H Urine Ketones NEGATIVE Urine Blood NEGATIVE Urine Nitrite NEGATIVE Ur Leukocyte Esterase NEGATIVE Urine WBC (Auto) 1 Urine RBC (Auto) 0 06/09/18 07:05 WBC RBC Hgb Hct MCV MCH MCHC RDW Plt Count Sodium 142.6 Potassium 5.5 H Chloride 118 H Carbon Dioxide 15 L Anion Gap 10 BUN 46 H Creatinine 5.49 H Est GFR ( Amer) 13 L Est GFR (Non-Af Amer) 10 L Glucose 89 Calcium 9.1 Urine Color Urine Appearance Urine pH Ur Specific [place] Urine Protein Urine Glucose (UA) Urine Ketones Urine Blood Urine Nitrite Ur Leukocyte Esterase Urine WBC (Auto) Urine RBC (Auto) Impressions: Chest X-Ray 06/08/18 15:15 IMPRESSION: NO ACUTE RADIOGRAPHIC FINDING IN THE CHEST. Assessment & Plan - Diagnosis (1) Acute kidney injury superimposed on chronic kidney disease Is this a current diagnosis for this admission?: Yes Plan: Improving. BUN and creatinine are trending down as well as potassium. Continue IV fluids guided by his volume status and encourage p.o. intake. His was having uremic symptoms due to worsening kidney function or could actually be going into end-stage renal disease. It is also possible his kidney function has been worsening because of poor oral intakes caused by his uremic symptoms. Nephrology on board. (2) Hyperkalemia Is this a current diagnosis for this admission?: Yes Plan: Improving. Due to worsening renal function. . Continue hyperkalemia protocol. Nephrology following. Continue telemetry. BMP every 6 hours. (3) Anemia in CKD (chronic kidney disease) Qualifiers: Chronic kidney disease stage: stage 5, not on chronic dialysis Qualified Code(s): N18.5 - Chronic kidney disease, stage 5; D63.1 - Anemia in chronic kidney disease; D63.1 - Anemia in chronic kidney disease Is this a current diagnosis for this admission?: Yes Plan: Likely caused by underlying CKD. H&H stable. Denies any external source of bleeding. Iron panel within normal limits. And may benefit from Procrit. Nephrology following. (4) Hx of seizure disorder Is this a current diagnosis for this admission?: No Plan: Start Depakote. Monitor electrolytes. Seizure precautions. (5) HTN (hypertension) Is this a current diagnosis for this admission?: No Plan: Restart amlodipine. Monitor vitals and adjust medications as needed. (6) Tremor Is this a current diagnosis for this admission?: No Plan: Improving since admission. Patient does not have any history of alcohol abuse or Parkinson. This could likely be due to side effects of thiothixene that he is doing for his schizophrenia. Restart benztropine. (7) Bradycardia Is this a current diagnosis for this admission?: Yes Plan: Sinus bradycardia. Asymptomatic. 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 Cardiac enzymes negative (8) Dehydration Is this a current diagnosis for this admission?: Yes Plan: Likely due to decreased fluid intake caused by uremic symptoms. Patient stating he is not drinking water "it does not taste good" . Resuscitate guided by volume status. (9) Schizophrenia Is this a current diagnosis for this admission?: No Plan: Restart home meds. Outpatient psychiatry follow-up.
[2018-06-09] MEDS: FOLIC ACID 1 MG TABLET PO SCH (10:00)
[2018-06-09] MEDS ORDERED: CYANOCOBALAMIN (VITAMIN B-12) 1,000 MCG TABLET PO SCH (10:00)
[2018-06-09] MEDS: BENZTROPINE MESYLATE 1 MG TABLET PO SCH (10:00)
[2018-06-09] MEDS ORDERED: THIOTHIXENE 10 MG PO SCH (10:00)
[2018-06-09] MEDS: AMLODIPINE BESYLATE 5 MG TABLET PO SCH (10:04)
[2018-06-09 14:14] LABS: ANION GAP 7 (5-19); BLOOD UREA NITROGEN 44 mg/dL (7-20); CALCIUM 9.4 mg/dL (8.4-10.2); CARBON DIOXIDE 14 mmol/L (22-30); CHLORIDE 123 mmol/L (98-107); POTASSIUM 5.1 mmol/L (3.6-5.0)
[2018-06-09 14:29] LABS: GLUCOSE 37 mg/dL (75-110)
--- NOTE | 2018-06-09 15:10 | RADIOLOGY REPORT (SQ) ---
EXAM DESCRIPTION: U/S RETROPERITON (RENAL/AORTA) COMPLETED DATE/TIME: 06/09/2018 2:41 pm REASON FOR STUDY: ASHLEY on CKD COMPARISON: 12/01/2017. TECHNIQUE: Dynamic and static grayscale images acquired of the kidneys and bladder and recorded on P ACS. Additional selected color Doppler and spectral images recorded. LIMITATIONS: None. FINDINGS: RIGHT KIDNEY: Normal size. Increased echogenicity. Simple cysts measuring 2.2 cm and 3.1 cm and complex cyst in the upper pole measuring 2.9 cm. No solid or suspicious masses. No hydroneph rosis. No calcifications. LEFT KIDNEY: Normal size. Increased echogenicity. Simple cysts measuring 2.9 and 3.8 cm. No solid or suspicious masses. No hydronephrosis. No calcifications. BLADDER: No masses. OTHER FINDINGS: No other significant finding. IMPRESSION: INCREASED ECHOGENICITY OF THE RENAL PARENCHYMA CONSISTENT WITH CHRONIC MEDICAL RENAL DIS EASE. NO HYDRONEPHROSIS. BILATERAL RENAL CYSTS UNCHANGED. TECHNICAL DOCUMENTATION: JOB ID: [id number] [employer]- All Rights Reserved Reading location - IP/workstation name: [email or web address]
[2018-06-09] MEDS ORDERED: 1/2 NORMAL SALINE 1,000 ML IV PRN (17:20)
--- NOTE | 2018-06-09 17:28 | PDOC PROGRESS REPORT ---
Subjective Progress Note for:: 06/09/18 Subjective:: Patient said that he is feeling better. When I entered the room he was eating his dinner and he seems to be eating according to him more than what he was doing at home for 3-4 weeks. He tells me that he is going to the bathroom better to include urination and bowel movements. He denies any complaints including shortness of breath. He feels like his tremors is better. Reason For Visit: HYPERKALEMIA Physical Exam Vital Signs: Temp Pulse Resp BP Pulse Ox 97.6 F 78 20 124/56 L 99 06/09/18 11:46 06/09/18 14:00 06/09/18 11:46 06/09/18 11:46 06/09/18 11:46 Intake & Output 06/08/18 06/09/18 06/10/18 06:59 06:59 06:59 Intake Total 2095 477 Output Total 400 Balance 1695 477 Weight 68.8 kg Exam: General appearance: PRESENT: no acute distress, cooperative, well-developed, well-nourished Head exam: PRESENT: atraumatic, normocephalic Eye exam: PRESENT: conjunctiva slightly pale, PERRLA. ABSENT: scleral icterus Neck exam: ABSENT: JVD Respiratory exam: PRESENT: Normal breath sounds. ABSENT: crackles, rales, rhonchi, unlabored, wheezes Cardiovascular exam: PRESENT: Regular rate rhythm -+S1, +S2. ABSENT: diastolic murmur, systolic murmur GI/Abdominal exam: PRESENT: normal bowel sounds, soft. ABSENT: guarding, mass, tenderness Extremities exam: ABSENT: No edema Neurological exam: PRESENT: alert, awake, oriented to person, place and time. Positive intention tremors Skin exam: PRESENT: dry, warm, Results Laboratory Results: 06/09/18 07:05 06/09/18 13:23 06/08/18 06/09/18 06/09/18 17:18 01:08 07:05 WBC 6.1 RBC 2.68 L Hgb 9.3 L Hct 27.9 L MCV 104 H MCH 34.8 H MCHC 33.4 RDW 14.7 H Plt Count 57 L Sodium 138.9 Potassium 6.0 H* Chloride 116 H Carbon Dioxide 15 L Anion Gap 8 BUN 52 H Creatinine 6.52 H Est GFR ( Amer) 10 L Est GFR (Non-Af Amer) 9 L Glucose 113 H Calcium 9.1 Urine Color STRAW Urine Appearance CLEAR Urine pH 6.0 Ur Specific [place] 1.009 Urine Protein 30 H Urine Glucose (UA) 50 H Urine Ketones NEGATIVE Urine Blood NEGATIVE Urine Nitrite NEGATIVE Ur Leukocyte Esterase NEGATIVE Urine WBC (Auto) 1 Urine RBC (Auto) 0 06/09/18 06/09/18 07:05 13:23 WBC RBC Hgb Hct MCV MCH MCHC RDW Plt Count Sodium 142.6 144.0 Potassium 5.5 H 5.1 H Chloride 118 H 123 H Carbon Dioxide 15 L 14 L Anion Gap 10 7 BUN 46 H 44 H Creatinine 5.49 H 5.18 H Est GFR ( Amer) 13 L 13 L Est GFR (Non-Af Amer) 10 L 11 L Glucose 89 37 L* Calcium 9.1 9.4 Urine Color Urine Appearance Urine pH Ur Specific [place] Urine Protein Urine Glucose (UA) Urine Ketones Urine Blood Urine Nitrite Ur Leukocyte Esterase Urine WBC (Auto) Urine RBC (Auto) Impressions: Chest X-Ray 06/08/18 15:15 IMPRESSION: NO ACUTE RADIOGRAPHIC FINDING IN THE CHEST. Renal Ultrasound 06/09/18 00:00 IMPRESSION: INCREASED ECHOGENICITY OF THE RENAL PARENCHYMA CONSISTENT WITH CHRONIC MEDICAL RENAL DISEASE. NO HYDRONEPHROSIS. BILATERAL RENAL CYSTS UNCHANGED. Assessment & Plan - Diagnosis (1) Acute kidney injury superimposed on chronic kidney disease Is this a current diagnosis for this admission?: Yes Plan: Likely due to prerenal azotemia secondary to dehydration. He has urine protein to creatinine ratio of 0.6. Patient's kidney function is significantly improved with IV fluid hydration. We will continue IV hydration but will change to fluids 2.45 normal saline at 125 mL an hour. Continue to monitor kidney function and electrolytes at this time. Will hold initiation of renal replacement therapy and reevaluate the patient. (2) Hyperkalemia Is this a current diagnosis for this admission?: Yes Plan: Resolving. Discontinue Kayexalate. (3) Anemia in CKD (chronic kidney disease) Qualifiers: Chronic kidney disease stage: stage 5, not on chronic dialysis Qualified Code(s): N18.5 - Chronic kidney disease, stage 5; D63.1 - Anemia in chronic kidney disease; D63.1 - Anemia in chronic kidney disease Is this a current diagnosis for this admission?: Yes Plan: Iron panel are acceptable. We will give the patient Procrit 20,000 units subcutaneously x1 dose today. (4) Metabolic acidosis Is this a current diagnosis for this admission?: Yes Plan: This is due to AK I/CKD and IV fluid hydration. We will start the patient on oral sodium bicarbonate 650 mg 2 tablets twice a day. (5) Hyperphosphatemia Is this a current diagnosis for this admission?: Yes (6) Hypermagnesemia Is this a current diagnosis for this admission?: Yes (7) HTN (hypertension) Is this a current diagnosis for this admission?: Yes Plan: Well-controlled. - Notes Notes: Patient would need a couple more days for adequate hydration and hopefully improvement of kidney function to baseline. - Time Time with patient: 15-25 minutes
[2018-06-09] MEDS ORDERED: EPOETIN ALFA INJ 20000 UNIT/1 ML VIAL (RENAL) SUBCUT ONE (20:00)
[2018-06-09] MEDS: NICOTINE 21 MG/24 HR PATCH.TD24 TD SCH (21:26)
[2018-06-09] MEDS: ATORVASTATIN CALCIUM 20 MG TABLET PO SCH (21:26)
[2018-06-09] MEDS: SODIUM BICARBONATE 650 MG TABLET PO SCH (21:26)
[2018-06-09] MEDS ORDERED: DIVALPROEX SODIUM 500 MG TAB.SR.24H PO SCH (22:00)
[2018-06-10 05:19] LABS: ABSOLUTE EOSINOPHILS # (AUTO) 0.3 10^3/uL (0.0-0.6); ABSOLUTE LYMPHOCYTES (AUTO) 2.8 10^3/uL (0.5-4.7); ABSOLUTE MONOCYTES (AUTO) 0.7 10^3/uL (0.1-1.4); BASOPHILS % (AUTO) 0.6 % (0-2); HEMATOCRIT 25.8 % (37.9-51.0); HEMOGLOBIN 8.7 g/dL (13.5-17.0); LYMPHOCYTES % (AUTO) 40.7 % (13-45); MEAN CORPUSCULAR HEMOGLOBIN 34.9 pg (27.0-33.4); MEAN CORPUSCULAR HGB CONC 33.8 g/dL (32.0-36.0); MEAN CORPUSCULAR VOLUME 103 fl (80-97); MONOCYTES % (AUTO) 10.8 % (3-13); RED BLOOD COUNT 2.51 10^6/uL (4.35-5.55); RED CELL DISTRIBUTION WIDTH 14.8 % (11.5-14.0); SEGMENTED NEUTROPHILS % (AUTO) 43.9 % (42-78); TOTAL CELLS COUNTED % (AUTO) 100 %; WHITE BLOOD COUNT 6.9 10^3/uL (4.0-10.5)
[2018-06-10 05:34] LABS: ALANINE AMINOTRANSFERASE 20 U/L (21-72); ALBUMIN 2.6 g/dL (3.5-5.0); ALKALINE PHOSPHATASE 61 U/L (38-126); ANION GAP 6 (5-19); ASPARTATE AMINO TRANSFERASE 28 U/L (17-59); BILIRUBIN,DIRECT 0.2 mg/dL (0.0-0.4); BILIRUBIN,TOTAL 0.3 mg/dL (0.2-1.3); BLOOD UREA NITROGEN 31 mg/dL (7-20); CALCIUM 8.9 mg/dL (8.4-10.2); CARBON DIOXIDE 16 mmol/L (22-30); CHLORIDE 121 mmol/L (98-107); GLUCOSE 94 mg/dL (75-110); POTASSIUM 4.6 mmol/L (3.6-5.0); SODIUM 143.3 mmol/L (137-145); TOTAL PROTEIN 5.6 g/dL (6.3-8.2)
[2018-06-10] MEDS: HEPARIN SOD (PORCINE) 5,000 UNIT/ML 1 ML SYRINGE SUBCUT SCH (05:38)
[2018-06-10 05:46] LABS: PLATELET COUNT 46 10^3/uL (150-450)
[2018-06-10] MEDS: LANSOPRAZOLE 15 MG TAB.RAP.DR PO SCH (06:52)
[2018-06-10 09:07] VITALS: BP 133/69
[2018-06-10] MEDS: SODIUM BICARBONATE 650 MG TABLET PO SCH (09:46)
[2018-06-10] MEDS: AMLODIPINE BESYLATE 5 MG TABLET PO SCH (09:46)
[2018-06-10] MEDS: BENZTROPINE MESYLATE 1 MG TABLET PO SCH (09:46)
[2018-06-10] MEDS: FOLIC ACID 1 MG TABLET PO SCH (09:47)
[2018-06-10] MEDS: NICOTINE 21 MG/24 HR PATCH.TD24 TD SCH (09:47)
[2018-06-10] MEDS ORDERED: CYANOCOBALAMIN (VITAMIN B-12) 1,000 MCG TABLET PO SCH (10:00)
--- NOTE | 2018-06-10 10:29 | PDOC DISCHARGE SUMMARY ---
General - Admit/Disc Date/PCP Admission Date/Primary Care Provider: 06/08/18 16:39 MARIELLA MCCLAIN MD Discharge Date: 06/10/18 - Discharge Diagnosis (1) Acute kidney injury superimposed on chronic kidney disease Is this a current diagnosis for this admission?: Yes (2) Hyperkalemia Is this a current diagnosis for this admission?: Yes (3) Anemia in CKD (chronic kidney disease) Is this a current diagnosis for this admission?: Yes (4) Hx of seizure disorder Is this a current diagnosis for this admission?: No (5) HTN (hypertension) Is this a current diagnosis for this admission?: Yes (6) Tremor Is this a current diagnosis for this admission?: No (7) Bradycardia Is this a current diagnosis for this admission?: Yes (8) Dehydration Is this a current diagnosis for this admission?: Yes (9) Schizophrenia Is this a current diagnosis for this admission?: No - Additional Information Resuscitation Status: Full Code Discharge Diet: As Tolerated Discharge Activity: Activity As Tolerated Home Medications: Benztropine Mesylate [Cogentin 1 mg Tablet] 1 tab PO DAILY 06/08/18 Cyanocobalamin (Vitamin B-12) [Vitamin B-12 1000 mcg Tablet] 1 tab PO DAILY Divalproex Sodium [Depakote ER 500 mg Tab.sr] 1,000 mg PO QHS 06/08/18 Folic Acid 1 mg PO DAILY 06/08/18 Lovastatin [Altoprev] 20 mg PO DAILY 06/08/18 Thiothixene 10 mg PO DAILY 06/08/18 Amlodipine Besylate [Norvasc 5 mg Tablet] 10 mg PO DAILY 30 Days #30 tab History of Present Illness History of Present Illness: ARPITA MCATRHUR is a 67 year old male CKD diagnosed 5 years ago, hypertension, hyperlipidemia, seizure disorder, depression presents after his tier and detonator office called and made him aware of high potassium and advised him to come to the emergency room. He states that he has felt generally weak over the last month and has lost about 15 pounds due to low appetite "food does not taste good" he has also cut down his fluid intake for the same reason. He mentions that he has lost his balance and on Tuesday he tripped and fell without losing consciousness or sustaining any trauma. He is also complaining of worsening intention tremor. He denies any headache, visual changes, nausea, vomiting, chest pain, shortness of breath, lower extremity edema. Hospitalist consulted for management for admission. As per ED doctor Dr. Mcclain his tier and detonator is aware of his worsening renal function and hyperkalemia and has agreed to consult on the patient. Hospital Course Hospital Course: (1) Acute kidney injury superimposed on chronic kidney disease Improving. Electrolytes within normal limits. BUN and creatinine close to baseline. He received IV fluids and his volume status were monitored. Worsening kidney function could be attributed to poor oral intake caused by his uremic symptoms. Probably followed while on inpatient. Patient nephrology follow-up. (2) Hyperkalemia Within normal limits. Due to worsening renal function. He was started on hyperkalemia protocol. BMP every 6 hours. (3) Anemia in CKD (chronic kidney disease) Likely caused by underlying CKD. H&H stable. He got 1 dose of Procrit while inpatient. Iron panel was checked which was within normal limits. Denies any external source of bleeding. Outpatient nephrology follow-up (4) Hx of seizure disorder Seizure activity while in the hospital. Restarted on Depakote. His electrolytes was monitored and seizure precautions were initiated. (5) HTN (hypertension) Increase amlodipine to 10 mg. Hold DAVEY until seen by PCP and nephrology. (6) Tremor Improved back to baseline. Patient does not have any history of alcohol abuse or Parkinson. This could likely be due to side effects of thiothixene that he is doing for his schizophrenia. Restart benztropine. (7) Bradycardia Sinus cardia. Resolved. Cardiac enzymes negative (8) Dehydration Likely due to decreased fluid intake caused by uremic symptoms. Patient stating he is not drinking water "it does not taste good" . Resuscitate guided by volume status. (9) Schizophrenia Restart home meds. Outpatient psychiatry follow-up. Physical Exam Vital Signs: Temp Pulse Resp BP Pulse Ox 98.5 F 60 18 133/69 H 95 06/10/18 08:25 06/10/18 08:25 06/10/18 08:25 06/10/18 08:25 06/10/18 08:25 Intake & Output 06/09/18 06/10/18 06/11/18 06:59 06:59 06:59 Intake Total 2095 2194 Output Total 400 Balance 1695 2194 Weight 68.8 kg 68 kg General appearance: PRESENT: no acute distress, well-developed, well-nourished Head exam: PRESENT: atraumatic, normocephalic Eye exam: PRESENT: conjunctiva pink, EOMI, PERRLA. ABSENT: scleral icterus Ear exam: PRESENT: normal external ear exam Mouth exam: PRESENT: moist, tongue midline Neck exam: ABSENT: carotid bruit, JVD, lymphadenopathy, thyromegaly Respiratory exam: PRESENT: clear to auscultation pili. ABSENT: rales, rhonchi, wheezes Cardiovascular exam: PRESENT: RRR. ABSENT: diastolic murmur, rubs, systolic murmur Pulses: PRESENT: normal dorsalis pedis pul Vascular exam: PRESENT: normal capillary refill GI/Abdominal exam: PRESENT: normal bowel sounds, soft. ABSENT: distended, guarding, mass, organolmegaly, rebound, tenderness Rectal exam: PRESENT: deferred Extremities exam: PRESENT: full ROM. ABSENT: calf tenderness, clubbing, pedal edema Neurological exam: PRESENT: alert, awake, oriented to person, oriented to place , oriented to time, oriented to situation, CN II-XII grossly intact. ABSENT: motor sensory deficit Psychiatric exam: PRESENT: appropriate affect, normal mood. ABSENT: homicidal ideation, suicidal ideation Skin exam: PRESENT: dry, intact, warm. ABSENT: cyanosis, rash Results Laboratory Results: 06/10/18 04:50 06/10/18 04:50 06/09/18 06/10/18 06/10/18 13:23 04:50 04:50 WBC 6.9 RBC 2.51 L Hgb 8.7 L Hct 25.8 L MCV 103 H MCH 34.9 H MCHC 33.8 RDW 14.8 H Plt Count 46 L Seg Neutrophils % 43.9 Lymphocytes % 40.7 Monocytes % 10.8 Eosinophils % 4.0 Basophils % 0.6 Absolute Neutrophils 3.0 Absolute Lymphocytes 2.8 Absolute Monocytes 0.7 Absolute Eosinophils 0.3 Absolute Basophils 0.0 Sodium 144.0 143.3 Potassium 5.1 H 4.6 Chloride 123 H 121 H Carbon Dioxide 14 L 16 L Anion Gap 7 6 BUN 44 H 31 H Creatinine 5.18 H 3.89 H Est GFR ( Amer) 13 L 19 L Est GFR (Non-Af Amer) 11 L 15 L Glucose 37 L* 94 Calcium 9.4 8.9 Total Bilirubin 0.3 AST 28 ALT 20 L Alkaline Phosphatase 61 Total Protein 5.6 L Albumin 2.6 L Impressions: Chest X-Ray 06/08/18 15:15 IMPRESSION: NO ACUTE RADIOGRAPHIC FINDING IN THE CHEST. Renal Ultrasound 06/09/18 00:00 IMPRESSION: INCREASED ECHOGENICITY OF THE RENAL PARENCHYMA CONSISTENT WITH CHRONIC MEDICAL RENAL DISEASE. NO HYDRONEPHROSIS. BILATERAL RENAL CYSTS UNCHANGED. Qualifiers - * PATIENT BEING DISCHARGED WITH ANY OF THE FOLLOWING DIAGNOSIS: No
== END 2018-06-10 11:30 | disposition home or self-care (01) | DRG 683 ==
LOC: ER 14:34 → EH 16:39 → 3N 18:40
PROVIDERS: ADMIT Emergency Medicine; ATTEND Emergency Medicine
DX: N17.9 Acute kidney failure, unspecified (principal); I12.0 Hypertensive chronic kidney disease with stage 5 chronic kidney disease or end stage renal disease; E87.2 Acidosis; N18.6 End stage renal disease; E87.5 Hyperkalemia; E78.5 Hyperlipidemia, unspecified; E86.0 Dehydration; D63.1 Anemia in chronic kidney disease; E83.39 Other disorders of phosphorus metabolism; E83.41 Hypermagnesemia; F32.9 Major depressive disorder, single episode, unspecified; F20.9 Schizophrenia, unspecified; F17.210 Nicotine dependence, cigarettes, uncomplicated
CPT/HCPCS: 36415; 71046; 76770; 80048; 80053; 81001; 82040; 82306; 82550; 82553; 82570; 82607; 82728; 82746; 82962; 83036; 83540; 83550; 83735; 83970; 84100; 84156; 84484; 85025; 85027; 85045; 85610; 85730; 90686; 93005; 93010; 94640; 96361; 96374; 96375; 99285; J0610; J1815; J1940; J2060; J3490; J7030; J7040; Q4081

== ENCOUNTER → 2018-06-08 | Outpatient (CLI) | payer MEDICARE ==
[2018-06-08 11:17] LABS: ABSOLUTE EOSINOPHILS # (AUTO) 0.2 10^3/uL (0.0-0.6); ABSOLUTE LYMPHOCYTES (AUTO) 2.6 10^3/uL (0.5-4.7); ABSOLUTE MONOCYTES (AUTO) 0.8 10^3/uL (0.1-1.4); ABSOLUTE NEUT (AUTO) 3.1 10^3/uL (1.7-8.2); BASOPHILS % (AUTO) 0.5 % (0-2); EOSINOPHILS % (AUTO) 2.4 % (0-6); HEMATOCRIT 30.3 % (37.9-51.0); HEMOGLOBIN 10.2 g/dL (13.5-17.0); LYMPHOCYTES % (AUTO) 39.3 % (13-45); MEAN CORPUSCULAR HEMOGLOBIN 34.7 pg (27.0-33.4); MEAN CORPUSCULAR HGB CONC 33.6 g/dL (32.0-36.0); MEAN CORPUSCULAR VOLUME 103 fl (80-97); MONOCYTES % (AUTO) 11.7 % (3-13); RED BLOOD COUNT 2.93 10^6/uL (4.35-5.55); RED CELL DISTRIBUTION WIDTH 14.9 % (11.5-14.0); SEGMENTED NEUTROPHILS % (AUTO) 46.1 % (42-78); TOTAL CELLS COUNTED % (AUTO) 100 %; WHITE BLOOD COUNT 6.7 10^3/uL (4.0-10.5)
[2018-06-08 11:25] LABS: ALBUMIN 3.5 g/dL (3.5-5.0); ANION GAP 8 (5-19); BLOOD UREA NITROGEN 60 mg/dL (7-20); CALCIUM 9.6 mg/dL (8.4-10.2); CARBON DIOXIDE 17 mmol/L (22-30); CHLORIDE 114 mmol/L (98-107); GLUCOSE 85 mg/dL (75-110); PHOSPHORUS 5.7 mg/dL (2.5-4.5); SODIUM 139.4 mmol/L (137-145)
[2018-06-08 11:40] LABS: POTASSIUM 6.2 mmol/L (3.6-5.0)
[2018-06-08 11:48] LABS: PLATELET COUNT 70 10^3/uL (150-450)
== END ==
LOC: OD 10:23
PROVIDERS: ATTEND Internal Medicine Nephrology
DX: N18.4 Chronic kidney disease, stage 4 (severe) (principal); R80.9 Proteinuria, unspecified; N18.9 Chronic kidney disease, unspecified; N25.81 Secondary hyperparathyroidism of renal origin
CPT/HCPCS: 36415; 80048; 82040; 82306; 83970; 84100; 85025

== ENCOUNTER 2018-06-28 08:24 | Day surgery (SDC) | payer MEDICARE ==
[2018-06-28 09:47] LABS: INTERNATIONAL RATION (INR) 0.96; PROTHROMBIN TIME 13.3 SEC (11.4-15.4)
[2018-06-28 09:48] LABS: PARTIAL THROMBOPLASTIN TIME 31.4 SEC (23.5-35.8)
[2018-06-28 09:58] LABS: BLOOD UREA NITROGEN 13 mg/dL (7-20)
[2018-06-28 10:00] LABS: HEMATOCRIT 25.9 % (37.9-51.0); MEAN CORPUSCULAR HEMOGLOBIN 35.8 pg (27.0-33.4); MEAN CORPUSCULAR HGB CONC 34.8 g/dL (32.0-36.0); MEAN CORPUSCULAR VOLUME 103 fl (80-97); RED BLOOD COUNT 2.52 10^6/uL (4.35-5.55); RED CELL DISTRIBUTION WIDTH 16.3 % (11.5-14.0); WHITE BLOOD COUNT 6.1 10^3/uL (4.0-10.5)
[2018-06-28 10:26] LABS: PLATELET COUNT 90 10^3/uL (150-450)
[2018-06-28] MEDS ORDERED: FENTANYL CITRATE INJ/PF 100 MCG/2 ML AMPUL ONE (10:45)
[2018-06-28] MEDS ORDERED: LIDOCAINE 1% INJ-PF (10 MG/ML) 30 ML SDV ONE (10:45)
[2018-06-28] MEDS ORDERED: MIDAZOLAM 2 MG/2 ML INJ ONE (10:45)
--- NOTE | 2018-06-28 12:03 | RADIOLOGY REPORT (SQ) ---
EXAM DESCRIPTION: CT NEEDLE PLACEMENT; CT BIOPSY BONE MARROW, NEEDLE COMPLETED DATE/TIME: 06/28/2018 11:23 am REASON FOR STUDY: ANEMIA UNSPECIFIED, BONE MARROW BIOPSY; ANEMIA UNSPECIFIED D64.9 ANEMIA, UNSPECIF IED Z79.01 CORRECTION (CURRENT) USE OF ANTICOAGULANTS COMPARISON: None. TECHNIQUE: CT guided biopsy of the right posterior iliac crest bone marrow performed with conscious sedation. CT Fluoroscopy Time: 3.[address] scanners at this facility use dose modulation, iterative reconstruction, and/or weight based d osing when appropriate to reduce radiation dose to as low as reasonably achievable (ALARA). [facility]: Dose Right [facility]: CareDose [facility]: Dose Right [facility]: Teradose 4D [facility]: [facility] RADIATION DOSE: CT Rad equipment meets quality standard of care and radiation dose reduction techniq ues were employed. CTDIvol: 4.0 - 8.6 mGy. DLP: 219 mGy-cm.mGy. FINDINGS: After obtaining informed consent and explaining the risks and benefits of conscious sedati on,the patient agreed to the procedure. Prior to the procedure, a time out was performed to verify th e patient's identity and planned procedure. IV conscious sedation was administered and physician direction by the registered nurse using 1 millig jamee of Versed and 50 micrograms of fentanyl. Physiologic monitoring was provided before, during, and after sedation. The total sedation time was 30 minutes. Documentation face to face time, the performing proceduralist, spent monitoring the patient: [address] scanning was performed to localize the percutaneous site for the biopsy approach. After sterile skin prep and local lidocaine for skin and deep tissue anesthesia, a coaxial biopsy nee dle was used to obtain a bone marrow aspirate, and a bone marrow core of tissue. The biopsy tissue wa s received by [facility] lab to be sent out for evaluation. There were no immediate complications. Pathology is pending at the time of dictation. IMPRESSION: CT GUIDED ASPIRATE AND CORE BIOPSY OF THE RIGHT POSTERIOR ILIAC CREST BONE MARROW PERFOR MED WITHOUT IMMEDIATE COMPLICATION. PATHOLOGY PENDING. IV CONSCIOUS SEDATION WITHOUT COMPLICATION. COMMENT: Quality ID 145: Final reports for procedures using fluoroscopy that document radiation exp osure indices, or exposure time and number of fluorographic images (if radiation exposure indices are not available) Patient medication list reviewed: Yes- Quality ID# [id number]:Eligible professional attests to documenting i n the medical record they obtained, updated, or reviewed the patient's current medications.. TECHNICAL DOCUMENTATION: JOB ID: [id number] Quality ID# [id number]: Final reports with documentation of one or more dose reduction techniques (e.g., Aut omated exposure control, adjustment of the mA and/or kV according to patient size, use of iterative r econstruction technique) 2010 [employer]- All Rights Reserved Reading location - IP/workstation name: [facility] [[email or web address]]
--- NOTE | 2018-06-28 12:03 | RADIOLOGY REPORT (SQ) ---
EXAM DESCRIPTION: CT NEEDLE PLACEMENT; CT BIOPSY BONE MARROW, NEEDLE COMPLETED DATE/TIME: 06/28/2018 11:23 am REASON FOR STUDY: ANEMIA UNSPECIFIED, BONE MARROW BIOPSY; ANEMIA UNSPECIFIED D64.9 ANEMIA, UNSPECIF IED Z79.01 ASSISTED (CURRENT) USE OF ANTICOAGULANTS COMPARISON: None. TECHNIQUE: CT guided biopsy of the right posterior iliac crest bone marrow performed with conscious sedation. CT Fluoroscopy Time: 3.[address] scanners at this facility use dose modulation, iterative reconstruction, and/or weight based d osing when appropriate to reduce radiation dose to as low as reasonably achievable (ALARA). [facility]: Dose Right [facility]: CareDose [facility]: Dose Right [facility]: Teradose 4D [facility]: [facility] RADIATION DOSE: CT Rad equipment meets quality standard of care and radiation dose reduction techniq ues were employed. CTDIvol: 4.0 - 8.6 mGy. DLP: 219 mGy-cm.mGy. FINDINGS: After obtaining informed consent and explaining the risks and benefits of conscious sedati on,the patient agreed to the procedure. Prior to the procedure, a time out was performed to verify th e patient's identity and planned procedure. IV conscious sedation was administered and physician direction by the registered nurse using 1 millig jamee of Versed and 50 micrograms of fentanyl. Physiologic monitoring was provided before, during, and after sedation. The total sedation time was 30 minutes. Documentation face to face time, the performing proceduralist, spent monitoring the patient: [address] scanning was performed to localize the percutaneous site for the biopsy approach. After sterile skin prep and local lidocaine for skin and deep tissue anesthesia, a coaxial biopsy nee dle was used to obtain a bone marrow aspirate, and a bone marrow core of tissue. The biopsy tissue wa s received by [facility] lab to be sent out for evaluation. There were no immediate complications. Pathology is pending at the time of dictation. IMPRESSION: CT GUIDED ASPIRATE AND CORE BIOPSY OF THE RIGHT POSTERIOR ILIAC CREST BONE MARROW PERFOR MED WITHOUT IMMEDIATE COMPLICATION. PATHOLOGY PENDING. IV CONSCIOUS SEDATION WITHOUT COMPLICATION. COMMENT: Quality ID 145: Final reports for procedures using fluoroscopy that document radiation exp osure indices, or exposure time and number of fluorographic images (if radiation exposure indices are not available) Patient medication list reviewed: Yes- Quality ID# [id number]:Eligible professional attests to documenting i n the medical record they obtained, updated, or reviewed the patient's current medications.. TECHNICAL DOCUMENTATION: JOB ID: [id number] Quality ID# 436: Final reports with documentation of one or more dose reduction techniques (e.g., Aut omated exposure control, adjustment of the mA and/or kV according to patient size, use of iterative r econstruction technique) 2010 [employer]- All Rights Reserved Reading location - IP/workstation name: [facility]
[2018-06-28 13:39] VITALS: BP 139/72
== END 2018-06-28 13:30 | disposition home or self-care (01) ==
LOC: RAD 08:24
PROVIDERS: ATTEND Internal Medicine Medical Oncology
DX: D64.9 Anemia, unspecified (principal); Z79.01 Long term (current) use of anticoagulants; D69.6 Thrombocytopenia, unspecified; Z79.899 Other long term (current) drug therapy; I10 Essential (primary) hypertension; F17.210 Nicotine dependence, cigarettes, uncomplicated
CPT/HCPCS: 36415; 84520; 82565; 85027; 85610; 85730; 38221; 77012; J2250; J3010; J3490

== ENCOUNTER → 2018-07-05 | Outpatient (CLI) | payer MEDICARE ==
[2018-07-05 11:37] LABS: ABSOLUTE EOSINOPHILS # (AUTO) 0.1 10^3/uL (0.0-0.6); ABSOLUTE LYMPHOCYTES (AUTO) 2.1 10^3/uL (0.5-4.7); ABSOLUTE MONOCYTES (AUTO) 0.6 10^3/uL (0.1-1.4); ABSOLUTE NEUT (AUTO) 3.1 10^3/uL (1.7-8.2); BASOPHILS % (AUTO) 0.5 % (0-2); EOSINOPHILS % (AUTO) 1.7 % (0-6); HEMATOCRIT 29.5 % (37.9-51.0); HEMOGLOBIN 9.9 g/dL (13.5-17.0); LYMPHOCYTES % (AUTO) 35.5 % (13-45); MEAN CORPUSCULAR HEMOGLOBIN 34.6 pg (27.0-33.4); MEAN CORPUSCULAR HGB CONC 33.8 g/dL (32.0-36.0); MEAN CORPUSCULAR VOLUME 102 fl (80-97); PLATELET COUNT 105 10^3/uL (150-450); RED BLOOD COUNT 2.88 10^6/uL (4.35-5.55); SEGMENTED NEUTROPHILS % (AUTO) 52.3 % (42-78); TOTAL CELLS COUNTED % (AUTO) 100 %; WHITE BLOOD COUNT 5.8 10^3/uL (4.0-10.5)
[2018-07-05 11:43] LABS: APPEARANCE,URINE CLEAR; BILIRUBIN,URINE NEGATIVE (NEGATIVE); COLOR,URINE STRAW; GLUCOSE, URINE NEGATIVE (NEGATIVE); KETONES,URINE NEGATIVE (NEGATIVE); LEUKOCYTE ESTERASE,URINE NEGATIVE (NEGATIVE); NITRITE,URINE NEGATIVE (NEGATIVE); PROTEIN,URINE 30 mg/dL (NEGATIVE); URINE SPECIFIC GRAVITY 1.004; UROBILINOGEN,URINE NEGATIVE mg/dL (<2.0)
[2018-07-05 12:10] LABS: ALBUMIN 3.6 g/dL (3.5-5.0); ANION GAP 9 (5-19); BLOOD UREA NITROGEN 12 mg/dL (7-20); CALCIUM 9.4 mg/dL (8.4-10.2); CARBON DIOXIDE 24 mmol/L (22-30); CHLORIDE 116 mmol/L (98-107); GLUCOSE 90 mg/dL (75-110); PHOSPHORUS 3.9 mg/dL (2.5-4.5); POTASSIUM 4.2 mmol/L (3.6-5.0); SODIUM 149.3 mmol/L (137-145)
[2018-07-06 12:38] LABS: CREATININE URINE 59.4 mg/dL (Not Estab.); MICROALBUMIN URINE 240.3 ug/mL (Not Estab.)
== END ==
LOC: OD 10:38
PROVIDERS: ATTEND Internal Medicine Nephrology
DX: I12.9 Hypertensive chronic kidney disease with stage 1 through stage 4 chronic kidney disease, or unspecified chronic kidney disease (principal); N18.4 Chronic kidney disease, stage 4 (severe); D64.9 Anemia, unspecified
CPT/HCPCS: 36415; 80048; 81001; 82040; 82043; 82306; 82570; 83970; 84100; 85025

== ENCOUNTER → 2018-08-23 | Outpatient (CLI) | payer MEDICARE ==
[2018-08-23 10:18] LABS: HEMATOCRIT 34.1 % (37.9-51.0); MEAN CORPUSCULAR HEMOGLOBIN 31.6 pg (27.0-33.4); MEAN CORPUSCULAR HGB CONC 32.2 g/dL (32.0-36.0); MEAN CORPUSCULAR VOLUME 98 fl (80-97); PLATELET COUNT 112 10^3/uL (150-450); RED BLOOD COUNT 3.48 10^6/uL (4.35-5.55); RED CELL DISTRIBUTION WIDTH 16.2 % (11.5-14.0); WHITE BLOOD COUNT 5.6 10^3/uL (4.0-10.5)
[2018-08-23 10:34] LABS: APPEARANCE,URINE CLEAR; BILIRUBIN,URINE NEGATIVE (NEGATIVE); COLOR,URINE STRAW; GLUCOSE, URINE NEGATIVE (NEGATIVE); KETONES,URINE NEGATIVE (NEGATIVE); LEUKOCYTE ESTERASE,URINE NEGATIVE (NEGATIVE); NITRITE,URINE NEGATIVE (NEGATIVE); PROTEIN,URINE 100 mg/dL (NEGATIVE); URINE SPECIFIC GRAVITY 1.004; UROBILINOGEN,URINE NEGATIVE mg/dL (<2.0)
[2018-08-23 10:38] LABS: ANION GAP 5 (5-19); BLOOD UREA NITROGEN 17 mg/dL (7-20); CALCIUM 9.1 mg/dL (8.4-10.2); CARBON DIOXIDE 26 mmol/L (22-30); CHLORIDE 113 mmol/L (98-107); GLUCOSE 101 mg/dL (75-110); PHOSPHORUS 4.2 mg/dL (2.5-4.5); POTASSIUM 4.3 mmol/L (3.6-5.0); SODIUM 144.3 mmol/L (137-145)
== END ==
LOC: OD 09:47
PROVIDERS: ATTEND Physician Assistant Medical
DX: I12.9 Hypertensive chronic kidney disease with stage 1 through stage 4 chronic kidney disease, or unspecified chronic kidney disease (principal); N18.4 Chronic kidney disease, stage 4 (severe); M10.00 Idiopathic gout, unspecified site
CPT/HCPCS: 36415; 80048; 81001; 83970; 84100; 85027

== ENCOUNTER → 2018-11-20 | Outpatient (CLI) | payer MEDICARE ==
[2018-11-20 11:22] LABS: ABSOLUTE EOSINOPHILS # (AUTO) 0.1 10^3/uL (0.0-0.6); ABSOLUTE LYMPHOCYTES (AUTO) 2.4 10^3/uL (0.5-4.7); ABSOLUTE MONOCYTES (AUTO) 0.5 10^3/uL (0.1-1.4); ABSOLUTE NEUT (AUTO) 2.7 10^3/uL (1.7-8.2); BASOPHILS % (AUTO) 0.5 % (0-2); HEMATOCRIT 31.7 % (37.9-51.0); HEMOGLOBIN 10.6 g/dL (13.5-17.0); LYMPHOCYTES % (AUTO) 42.6 % (13-45); MEAN CORPUSCULAR HEMOGLOBIN 31.5 pg (27.0-33.4); MEAN CORPUSCULAR HGB CONC 33.5 g/dL (32.0-36.0); MEAN CORPUSCULAR VOLUME 94 fl (80-97); MONOCYTES % (AUTO) 9.1 % (3-13); PLATELET COUNT 170 10^3/uL (150-450); RED BLOOD COUNT 3.37 10^6/uL (4.35-5.55); RED CELL DISTRIBUTION WIDTH 16.5 % (11.5-14.0); SEGMENTED NEUTROPHILS % (AUTO) 46.8 % (42-78); TOTAL CELLS COUNTED % (AUTO) 100 %; WHITE BLOOD COUNT 5.8 10^3/uL (4.0-10.5)
[2018-11-20 11:48] LABS: URINE CREATININE 78.4 mg/dL (22-328); URINE PROTEIN 77.7 mg/dL (<12)
[2018-11-20 11:51] LABS: ANION GAP 8 (5-19); BLOOD UREA NITROGEN 18 mg/dL (7-20); CALCIUM 9.9 mg/dL (8.4-10.2); CARBON DIOXIDE 24 mmol/L (22-30); CHLORIDE 111 mmol/L (98-107); GLUCOSE 90 mg/dL (75-110); SODIUM 142.8 mmol/L (137-145)
== END ==
LOC: OD 10:28
PROVIDERS: ATTEND Internal Medicine Nephrology
DX: I12.9 Hypertensive chronic kidney disease with stage 1 through stage 4 chronic kidney disease, or unspecified chronic kidney disease (principal); N18.4 Chronic kidney disease, stage 4 (severe); D64.9 Anemia, unspecified
CPT/HCPCS: 36415; 80048; 82306; 82570; 83970; 84156; 85025

== ENCOUNTER → 2019-02-26 | Outpatient (CLI) | payer MEDICARE ==
[2019-02-26 10:55] LABS: UR PRO/CREAT RATIO RESULT 1.1 mg/mg (0.0-0.2); URINE CREATININE 101.9 mg/dL (22-328); URINE PROTEIN 114.2 mg/dL (<12)
[2019-02-26 11:42] LABS: APPEARANCE,URINE SLIGHTLY HAZY; BILIRUBIN,URINE NEGATIVE (NEGATIVE); COLOR,URINE STRAW; GLUCOSE, URINE NEGATIVE (NEGATIVE); KETONES,URINE NEGATIVE (NEGATIVE); LEUKOCYTE ESTERASE,URINE LARGE (NEGATIVE); NITRITE,URINE NEGATIVE (NEGATIVE); PROTEIN,URINE 100 mg/dL (NEGATIVE); URINE SPECIFIC GRAVITY 1.008; UROBILINOGEN,URINE NEGATIVE mg/dL (<2.0)
[2019-02-27 15:30] LABS: ABSOLUTE BASOPHILS # (AUTO) 0.1 10^3/uL (0.0-0.2); ABSOLUTE EOSINOPHILS # (AUTO) 0.1 10^3/uL (0.0-0.6); ABSOLUTE LYMPHOCYTES (AUTO) 2.6 10^3/uL (0.5-4.7); ABSOLUTE MONOCYTES (AUTO) 0.8 10^3/uL (0.1-1.4); ABSOLUTE NEUT (AUTO) 3.9 10^3/uL (1.7-8.2); BASOPHILS % (AUTO) 0.7 % (0-2); EOSINOPHILS % (AUTO) 1.1 % (0-6); HEMATOCRIT 30.8 % (37.9-51.0); HEMOGLOBIN 10.3 g/dL (13.5-17.0); MEAN CORPUSCULAR HGB CONC 33.3 g/dL (32.0-36.0); MEAN CORPUSCULAR VOLUME 93 fl (80-97); MONOCYTES % (AUTO) 10.5 % (3-13); PLATELET COUNT 179 10^3/uL (150-450); RED BLOOD COUNT 3.31 10^6/uL (4.35-5.55); RED CELL DISTRIBUTION WIDTH 15.5 % (11.5-14.0); SEGMENTED NEUTROPHILS % (AUTO) 52.7 % (42-78); TOTAL CELLS COUNTED % (AUTO) 100 %; WHITE BLOOD COUNT 7.5 10^3/uL (4.0-10.5)
[2019-02-27 15:41] LABS: ALBUMIN 3.5 g/dL (3.5-5.0); ANION GAP 8 (5-19); BLOOD UREA NITROGEN 26 mg/dL (7-20); CALCIUM 9.1 mg/dL (8.4-10.2); CARBON DIOXIDE 20 mmol/L (22-30); CHLORIDE 112 mmol/L (98-107); GLUCOSE 113 mg/dL (75-110); IRON(TIBC) 55.4 ug/dL (49-181); PHOSPHORUS 4.2 mg/dL (2.5-4.5); POTASSIUM 4.7 mmol/L (3.6-5.0); SODIUM 139.9 mmol/L (137-145)
== END ==
LOC: OD 09:30
PROVIDERS: ATTEND Internal Medicine Nephrology
DX: I12.9 Hypertensive chronic kidney disease with stage 1 through stage 4 chronic kidney disease, or unspecified chronic kidney disease (principal); N18.4 Chronic kidney disease, stage 4 (severe); D64.9 Anemia, unspecified; E55.9 Vitamin D deficiency, unspecified
CPT/HCPCS: 36415; 80069; 81001; 82306; 82570; 82728; 83540; 83550; 83970; 84156; 85025

== ENCOUNTER → 2019-05-30 | Outpatient (CLI) | payer MEDICARE ==
[2019-05-30 09:04] LABS: ABSOLUTE BASOPHILS # (AUTO) 0.1 10^3/uL (0.0-0.2); ABSOLUTE EOSINOPHILS # (AUTO) 0.1 10^3/uL (0.0-0.6); ABSOLUTE LYMPHOCYTES (AUTO) 3.3 10^3/uL (0.5-4.7); ABSOLUTE MONOCYTES (AUTO) 0.8 10^3/uL (0.1-1.4); ABSOLUTE NEUT (AUTO) 4.7 10^3/uL (1.7-8.2); BASOPHILS % (AUTO) 0.6 % (0-2); EOSINOPHILS % (AUTO) 1.2 % (0-6); HEMATOCRIT 31.2 % (37.9-51.0); HEMOGLOBIN 10.4 g/dL (13.5-17.0); LYMPHOCYTES % (AUTO) 36.3 % (13-45); MEAN CORPUSCULAR HEMOGLOBIN 31.3 pg (27.0-33.4); MEAN CORPUSCULAR HGB CONC 33.4 g/dL (32.0-36.0); MEAN CORPUSCULAR VOLUME 94 fl (80-97); PLATELET COUNT 153 10^3/uL (150-450); RED BLOOD COUNT 3.32 10^6/uL (4.35-5.55); RED CELL DISTRIBUTION WIDTH 15.4 % (11.5-14.0); SEGMENTED NEUTROPHILS % (AUTO) 52.9 % (42-78); TOTAL CELLS COUNTED % (AUTO) 100 %
[2019-05-30 09:13] LABS: APPEARANCE,URINE CLEAR; BILIRUBIN,URINE NEGATIVE (NEGATIVE); COLOR,URINE STRAW; GLUCOSE, URINE NEGATIVE (NEGATIVE); KETONES,URINE NEGATIVE (NEGATIVE); LEUKOCYTE ESTERASE,URINE LARGE (NEGATIVE); NITRITE,URINE NEGATIVE (NEGATIVE); PROTEIN,URINE 30 mg/dL (NEGATIVE); URINE SPECIFIC GRAVITY 1.004; UROBILINOGEN,URINE NEGATIVE mg/dL (<2.0)
[2019-05-30 09:22] LABS: ANION GAP 7 (5-19); BLOOD UREA NITROGEN 26 mg/dL (7-20); CALCIUM 9.4 mg/dL (8.4-10.2); CARBON DIOXIDE 20 mmol/L (22-30); CHLORIDE 115 mmol/L (98-107); GLUCOSE 100 mg/dL (75-110); IRON(TIBC) 37.6 ug/dL (49-181); POTASSIUM 4.2 mmol/L (3.6-5.0)
== END ==
LOC: OD 08:26
PROVIDERS: ATTEND Internal Medicine Nephrology
DX: I12.9 Hypertensive chronic kidney disease with stage 1 through stage 4 chronic kidney disease, or unspecified chronic kidney disease (principal); N18.4 Chronic kidney disease, stage 4 (severe); D63.1 Anemia in chronic kidney disease; D50.9 Iron deficiency anemia, unspecified; R80.9 Proteinuria, unspecified; N39.0 Urinary tract infection, site not specified
CPT/HCPCS: 36415; 80048; 81001; 82728; 83540; 83550; 83970; 85025; 87086; 87088

== ENCOUNTER → 2019-09-10 | Outpatient (CLI) | payer MEDICARE ==
[2019-09-10 11:06] LABS: ABSOLUTE EOSINOPHILS # (AUTO) 0.2 10^3/uL (0.0-0.6); ABSOLUTE LYMPHOCYTES (AUTO) 3.1 10^3/uL (0.5-4.7); ABSOLUTE MONOCYTES (AUTO) 0.6 10^3/uL (0.1-1.4); ABSOLUTE NEUT (AUTO) 2.9 10^3/uL (1.7-8.2); BASOPHILS % (AUTO) 0.4 % (0-2); EOSINOPHILS % (AUTO) 2.3 % (0-6); HEMATOCRIT 31.5 % (37.9-51.0); HEMOGLOBIN 10.7 g/dL (13.5-17.0); LYMPHOCYTES % (AUTO) 45.3 % (13-45); MEAN CORPUSCULAR HEMOGLOBIN 32.8 pg (27.0-33.4); MEAN CORPUSCULAR HGB CONC 33.9 g/dL (32.0-36.0); MEAN CORPUSCULAR VOLUME 97 fl (80-97); MONOCYTES % (AUTO) 9.1 % (3-13); PLATELET COUNT 138 10^3/uL (150-450); RED BLOOD COUNT 3.25 10^6/uL (4.35-5.55); RED CELL DISTRIBUTION WIDTH 16.3 % (11.5-14.0); SEGMENTED NEUTROPHILS % (AUTO) 42.9 % (42-78); TOTAL CELLS COUNTED % (AUTO) 100 %; WHITE BLOOD COUNT 6.8 10^3/uL (4.0-10.5)
[2019-09-10 11:21] LABS: UR PRO/CREAT RATIO RESULT 1.1 mg/mg (0.0-0.2); URINE CREATININE 53.6 mg/dL (22-328); URINE PROTEIN 58.6 mg/dL (<12)
[2019-09-10 11:38] LABS: ALBUMIN 3.6 g/dL (3.5-5.0); ANION GAP 8 (5-19); BLOOD UREA NITROGEN 34 mg/dL (7-20); CALCIUM 9.4 mg/dL (8.4-10.2); CARBON DIOXIDE 23 mmol/L (22-30); CHLORIDE 111 mmol/L (98-107); GLUCOSE 87 mg/dL (75-110); IRON(TIBC) 94.9 ug/dL (49-181); PHOSPHORUS 4.4 mg/dL (2.5-4.5); POTASSIUM 4.8 mmol/L (3.6-5.0)
== END ==
LOC: OD 10:19
PROVIDERS: ATTEND Internal Medicine Nephrology
DX: I12.9 Hypertensive chronic kidney disease with stage 1 through stage 4 chronic kidney disease, or unspecified chronic kidney disease (principal); N18.4 Chronic kidney disease, stage 4 (severe); D63.1 Anemia in chronic kidney disease; N25.81 Secondary hyperparathyroidism of renal origin; E55.9 Vitamin D deficiency, unspecified; D50.9 Iron deficiency anemia, unspecified
CPT/HCPCS: 36415; 80069; 82306; 82570; 82728; 83540; 83550; 83970; 84156; 85025

== ENCOUNTER → 2019-09-24 | Outpatient (CLI) | payer MEDICARE ==
[2019-09-24 10:38] LABS: ANION GAP 6 (5-19); BLOOD UREA NITROGEN 30 mg/dL (7-20); CALCIUM 9.5 mg/dL (8.4-10.2); CARBON DIOXIDE 21 mmol/L (22-30); CHLORIDE 114 mmol/L (98-107); GLUCOSE 90 mg/dL (75-110); POTASSIUM 4.7 mmol/L (3.6-5.0)
== END ==
LOC: OD 09:14
PROVIDERS: ATTEND Internal Medicine Nephrology
DX: N17.9 Acute kidney failure, unspecified (principal); I12.9 Hypertensive chronic kidney disease with stage 1 through stage 4 chronic kidney disease, or unspecified chronic kidney disease; N18.4 Chronic kidney disease, stage 4 (severe); D63.1 Anemia in chronic kidney disease; N25.81 Secondary hyperparathyroidism of renal origin
CPT/HCPCS: 36415; 80048

== ENCOUNTER → 2019-09-28 | Outpatient (CLI) | payer MEDICARE ==
[2019-09-28 12:01] LABS: ANION GAP 8 (5-19); BLOOD UREA NITROGEN 31 mg/dL (7-20); CALCIUM 9.5 mg/dL (8.4-10.2); CARBON DIOXIDE 21 mmol/L (22-30); CHLORIDE 112 mmol/L (98-107); GLUCOSE 98 mg/dL (75-110); POTASSIUM 4.2 mmol/L (3.6-5.0)
== END ==
LOC: OD 10:39
PROVIDERS: ATTEND Internal Medicine Nephrology
DX: N17.9 Acute kidney failure, unspecified (principal); I12.9 Hypertensive chronic kidney disease with stage 1 through stage 4 chronic kidney disease, or unspecified chronic kidney disease; N18.4 Chronic kidney disease, stage 4 (severe); D63.1 Anemia in chronic kidney disease; N25.81 Secondary hyperparathyroidism of renal origin
CPT/HCPCS: 36415; 80048

== ENCOUNTER → 2020-01-10 | Outpatient (CLI) | payer MEDICARE ==
[2020-01-10 10:09] LABS: ABSOLUTE EOSINOPHILS # (AUTO) 0.4 10^3/uL (0.0-0.6); ABSOLUTE LYMPHOCYTES (AUTO) 3.1 10^3/uL (0.5-4.7); ABSOLUTE MONOCYTES (AUTO) 0.5 10^3/uL (0.1-1.4); ABSOLUTE NEUT (AUTO) 2.6 10^3/uL (1.7-8.2); BASOPHILS % (AUTO) 0.6 % (0-2); EOSINOPHILS % (AUTO) 5.4 % (0-6); HEMATOCRIT 29.5 % (37.9-51.0); LYMPHOCYTES % (AUTO) 46.4 % (13-45); MEAN CORPUSCULAR HEMOGLOBIN 34.2 pg (27.0-33.4); MEAN CORPUSCULAR VOLUME 100 fl (80-97); MONOCYTES % (AUTO) 8.2 % (3-13); PLATELET COUNT 177 10^3/uL (150-450); RED BLOOD COUNT 2.93 10^6/uL (4.35-5.55); RED CELL DISTRIBUTION WIDTH 17.4 % (11.5-14.0); SEGMENTED NEUTROPHILS % (AUTO) 39.4 % (42-78); TOTAL CELLS COUNTED % (AUTO) 100 %; WHITE BLOOD COUNT 6.7 10^3/uL (4.0-10.5)
[2020-01-10 10:26] LABS: ALBUMIN 3.8 g/dL (3.5-5.0); ANION GAP 6 (5-19); BLOOD UREA NITROGEN 36 mg/dL (7-20); CALCIUM 9.6 mg/dL (8.4-10.2); CARBON DIOXIDE 27 mmol/L (22-30); CHLORIDE 105 mmol/L (98-107); GLUCOSE 97 mg/dL (75-110); PHOSPHORUS 4.4 mg/dL (2.5-4.5); POTASSIUM 5.1 mmol/L (3.6-5.0)
[2020-01-10 11:33] LABS: URINE CREATININE 57.9 mg/dL (22-328); URINE PROTEIN 58.1 mg/dL (<12)
== END ==
LOC: OD 09:43
PROVIDERS: ATTEND Internal Medicine Nephrology
DX: N17.9 Acute kidney failure, unspecified (principal); I12.9 Hypertensive chronic kidney disease with stage 1 through stage 4 chronic kidney disease, or unspecified chronic kidney disease; N18.4 Chronic kidney disease, stage 4 (severe); N25.81 Secondary hyperparathyroidism of renal origin
CPT/HCPCS: 36415; 80069; 82570; 83970; 84156; 85025

== ENCOUNTER 2020-07-28 17:25 | Emergency (ER) | payer MEDICARE ==
--- NOTE | 2020-07-28 18:06 | ER Document Report ---
ED Medical Screen (RME) - General Chief Complaint: Abnormal Lab Results Stated Complaint: ABNORMAL LABS Time Seen by Provider: 07/28/20 18:03 Primary Care Provider: MARIELLA MCCLAIN MD [Primary Care Provider] - Follow up as needed Notes: HPI: 69-year-old male with history of hypertension presenting for evaluation of possible abnormal labs. Patient states he had lab work drawn several days ago and was called today by the primary provider that he needed to come to the emergency department because his calcium was too high. Patient has no physical complaints at this time. PHYSICAL EXAMINATION: Lung sounds are clear to auscultation regular rate and rhythm. Answers all questions appropriately no extremity tenderness on palpation I have greeted and performed a rapid initial assessment of this patient. A c omprehensive ED assessment and evaluation of the patient, analysis of test results and completion of medical decision making process will be conducted by an additional ED providers. TRAVEL OUTSIDE OF THE [place] IN LAST 30 DAYS: No - Related Data Allergies/Adverse Reactions: No Known Allergies Allergy (Verified 06/08/18 14:35) Past Medical History - Past Medical History Cardiac Medical History: Reports: Hx Hypercholesterolemia, Hx Hypertension Denies: Hx Coronary Artery Disease, Hx Heart Attack Pulmonary Medical History: Denies: Hx Asthma, Hx Bronchitis, Hx COPD, Hx Pneumonia Neurological Medical History: Reports: Hx Seizures - LAST SEIZURE 1981. Denies: Hx Cerebrovascular Accident Renal/ Medical History: Reports: Hx End Stage Renal Disease. Denies: Hx Peritoneal Dialysis Musculoskeltal Medical History: Reports Hx Arthritis - GENERALIZED, Reports Hx Gout Psychiatric Medical History: Reports: Hx Depression, Hx Schizoaffective Disorder - Immunizations Hx Diphtheria, Pertussis, Tetanus Vaccination: Yes Doctor's Discharge - Discharge Referrals: MARIELLA MCCLAIN MD [Primary Care Provider] - Follow up as needed
[2020-07-28 18:56] LABS: ABSOLUTE BASOPHILS # (AUTO) 0.1 10^3/uL (0.0-0.2); ABSOLUTE LYMPHOCYTES (AUTO) 2.5 10^3/uL (0.5-4.7); ABSOLUTE MONOCYTES (AUTO) 0.7 10^3/uL (0.1-1.4); ABSOLUTE NEUT (AUTO) 3.9 10^3/uL (1.7-8.2); BASOPHILS % (AUTO) 0.8 % (0-2); EOSINOPHILS % (AUTO) 0.5 % (0-6); HEMATOCRIT 32.3 % (37.9-51.0); HEMOGLOBIN 10.5 g/dL (13.5-17.0); LYMPHOCYTES % (AUTO) 34.5 % (13-45); MEAN CORPUSCULAR HEMOGLOBIN 31.9 pg (27.0-33.4); MEAN CORPUSCULAR HGB CONC 32.5 g/dL (32.0-36.0); MEAN CORPUSCULAR VOLUME 98 fl (80-97); PLATELET COUNT 151 10^3/uL (150-450); RED BLOOD COUNT 3.29 10^6/uL (4.35-5.55); RED CELL DISTRIBUTION WIDTH 15.8 % (11.5-14.0); SEGMENTED NEUTROPHILS % (AUTO) 54.2 % (42-78); TOTAL CELLS COUNTED % (AUTO) 100 %; WHITE BLOOD COUNT 7.3 10^3/uL (4.0-10.5)
[2020-07-28 19:12] LABS: ALBUMIN 4.2 g/dL (3.5-5.0); ALKALINE PHOSPHATASE 63 U/L (38-126); ANION GAP 9 (5-19); ASPARTATE AMINO TRANSFERASE 21 U/L (17-59); BILIRUBIN,DIRECT 0.5 mg/dL (0.0-0.4); BILIRUBIN,TOTAL 0.6 mg/dL (0.2-1.3); BLOOD UREA NITROGEN 47 mg/dL (7-20); CARBON DIOXIDE 24 mmol/L (22-30); CHLORIDE 107 mmol/L (98-107); GLUCOSE 74 mg/dL (75-110); POTASSIUM 4.6 mmol/L (3.6-5.0); TOTAL PROTEIN 7.3 g/dL (6.3-8.2)
--- NOTE | 2020-07-28 22:31 | ER Document Report ---
ED General - General Chief Complaint: Abnormal Lab Results Stated Complaint: ABNORMAL LABS Time Seen by Provider: 07/28/20 18:03 Primary Care Provider: MARIELLA MCCLAIN MD [ACTIVE STAFF] - Follow up as needed TRAVEL OUTSIDE OF THE [place] IN LAST 30 DAYS: No - HPI Notes: Patient with stage IV chronic kidney disease had labs done at his primary care provider late last week. He got a call today that his potassium was high and he should go to his primary care doctor to be evaluated. He tried to be seen there but they were already closed. He was then advised to go to the emergency department. He states he is totally asymptomatic except that he is hungry. He sees Dr. Mcclain from nephrology from time to time although he has not seen her in a while. He is otherwise in his usual state of health. - Related Data Allergies/Adverse Reactions: No Known Allergies Allergy (Verified 07/28/20 19:55) Past Medical History - General Information source: Patient - Social History Smoking Status: Current Every Day Smoker Frequency of alcohol use: None Drug Abuse: None Family History: Reviewed & Not Pertinent - Medical History Notes: Past medical history is reviewed as documented in the electronic health record. - Past Medical History Cardiac Medical History: Reports: Hx Hypercholesterolemia, Hx Hypertension Denies: Hx Coronary Artery Disease, Hx Heart Attack Pulmonary Medical History: Denies: Hx Asthma, Hx Bronchitis, Hx COPD, Hx Pneumonia Neurological Medical History: Reports: Hx Seizures - LAST SEIZURE 1981. Denies: Hx Cerebrovascular Accident Renal/ Medical History: Reports: Hx End Stage Renal Disease. Denies: Hx Peritoneal Dialysis Musculoskeletal Medical History: Reports Hx Arthritis - GENERALIZED, Reports Hx Gout Psychiatric Medical History: Reports: Hx Depression, Hx Schizoaffective Disorder - Immunizations Hx Diphtheria, Pertussis, Tetanus Vaccination: Yes Review of Systems - Review of Systems Notes: Constitutional: No fever or chills. Respiratory: No cough wheezing or dyspnea. Cardiac: No palpitations or dyspnea on exertion. Extremities: No edema. Physical Exam - Vital signs Vitals: Temp Pulse Resp BP Pulse Ox 98.2 F 73 20 171/92 H 99 07/28/20 18:09 07/28/20 18:09 07/28/20 18:09 07/28/20 18:09 07/28/20 18:09 - Notes Notes: General: Elderly male no acute distress. Vital signs and nursing chief complaint are reviewed. Lungs: Clear to auscultation all stuart. Heart: Regular rate and rhythm no murmur. Abdomen: Soft nontender no masses organomegaly rigidity or guarding. Extremities: Without clubbing cyanosis or edema. Course - Re-evaluation Re-evalutation: 07/28/20 22:29 Patient's case was discussed with Dr. Mcclain who is on-call tonight. His potassium here is 4.6. The rest of his electrolytes are perfectly fine. His GFR is 14 which has dwindled about 30% since the beginning of the year. She recommen ded no further treatment tonight. She felt he could go home. He is already aware of following a low potassium diet. He will make an appointment with Dr. Mcclain tomorrow. - Vital Signs Vital signs: Temp Pulse Resp BP Pulse Ox 98.4 F 72 16 150/76 H 99 07/28/20 22:52 07/28/20 22:52 07/28/20 22:52 07/28/20 22:52 07/28/20 22:52 - Laboratory Result Diagrams: 07/28/20 18:35 07/28/20 18:35 Laboratory results interpreted by me: 07/28/20 07/28/20 18:35 18:35 RBC 3.29 L Hgb 10.5 L Hct 32.3 L MCV 98 H RDW 15.8 H BUN 47 H Creatinine 5.09 H Est GFR ( Amer) 14 L Est GFR (MDRD) Non-Af 11 L Glucose 74 L Magnesium 2.8 H Direct Bilirubin 0.5 H - EKG Interpretation by Pa EKG shows normal: Sinus rhythm, [employer], Intervals, QRS Complexes Discharge - Discharge Clinical Impression: Kidney disease, chronic, stage IV (GFR 15-29 ml/min) Condition: Stable Disposition: HOME, SELF-CARE Instructions: Kidney Failure ([facility]) Additional Instructions: Continue your current medications as prescribed. Contact your kidney doctor's office tomorrow to schedule an appointment to see her. Return to the emergency department as needed if unimproved or if any other concerning symptoms develop. Referrals: MARIELLA MCCLAIN MD [ACTIVE STAFF] - Follow up as needed
[2020-07-28 22:54] VITALS: BP 150/76
--- NOTE | 2020-07-29 17:48 | EKG REPORT ---
SEVERITY:- NORMAL ECG - SINUS RHYTHM : Confirmed by: Leonel Casillas 29-Jul-2020 17:46:47
== END 2020-07-28 22:52 | disposition home or self-care (01) ==
LOC: ER 17:25
DX: N18.5 Chronic kidney disease, stage 5 (principal); I12.0 Hypertensive chronic kidney disease with stage 5 chronic kidney disease or end stage renal disease; F17.200 Nicotine dependence, unspecified, uncomplicated
CPT/HCPCS: 36415; 80053; 83735; 84484; 85025; 93005; 93010; 99284